=== PATIENT | male | born 1950 | race Caucasian/White ===

== ENCOUNTER 2016-08-07 10:11 | Emergency (ER) | payer MEDICARE, BC ==
[2016-08-07 12:17] LABS: Hematocrit 46 % (42-52); Hemoglobin 15.9 g/dl (14.0-18.0); Mean Corpuscular HGB Conc 35 g/dl (31-36); Mean Corpuscular Hemoglobin 32 pg (27-31); Mean Corpuscular Volume 92 fL (80-94); Mean Platelet Volume 9 um3 (7.4-10.4); Red Blood Count 5.05 10^6/ul (4.0-5.4); Red Cell Distribution Width 13 % (10.5-15); White Blood Count 8.1 10^3/ul (3.5-10.8)
[2016-08-07 12:28] LABS: Albumin 4.1 g/dL (3.2-5.2); BUN/Creatinine Ratio 16.3 (8-20); C Reactive Protein 45.47 mg/L (< 5.00); Calcium 9.6 mg/dL (8.6-10.3); EGFR African American 114.8 (>60); EGFR Non-African American 89.2 (>60); Globulin 3.5 g/dL (2-4); Potassium 4.6 mmol/L (3.5-5.0); Total Bilirubin 0.7 mg/dL (0.2-1.0); Total Protein 7.6 g/dL (6.4-8.9)
[2016-08-07 13:00] LABS: Erythrocyte Sed Rate 54 mm/Hr (0-40)
[2016-08-07] MEDS ORDERED: Iohexol 300* (CONTRAST) 10 ML SDV IV ONE (16:24)
[2016-08-07 16:41] LABS: Urine Bilirubin Negative (Negative); Urine Glucose Negative (Negative); Urine Nitrite Negative (Negative)
--- NOTE | 2016-08-07 17:38 | RAD ---
CLINICAL HISTORY: Rectal pain COMPARISON: Most recent comparison CT is dated August 02, 2016 TECHNIQUE: Contrast enhanced CT examination of the abdomen and pelvis from the lung bases through the initial tuberosities. The patient received 115 mL Omnipaque 300 intravenously prior to imaging.The patient received oral contrast as well prior to imaging. FINDINGS: VISUALIZED LUNG BASES: The visualized lung bases are grossly clear. There is no pleural effusion. ABDOMEN AND PELVIS: In the right lobe of the liver there is a 12 mm low-density exhibiting peripheral nodular enhancement most consistent with a benign hemangioma. The liver parenchyma is otherwise homogenous in attenuation and the surface is smooth. The spleen, pancreas and adrenal glands are grossly normal in appearance. The gallbladder is normal. The left kidney is normal in appearance without focal mass, calcification or signs of hydronephrosis. At the medial aspect of the left mid level kidney there is a 1.7 cm nodule with Hounsfield units greater than that of a simple cyst. This cyst was not definitely identified on the MR of the abdomen dated February 17, 2015. There are contrast has progressed as far as the base of the cecum. The small and large bowel are not pathologically distended. Involving the terminal ileum (for example axial image 57) there is mild wall thickening measuring up to 6 mm in thickness. There is questionable wall thickening involving the base of the cecum (for example coronal image 31). There is a large amount of stool and gas throughout the length of the colon including the rectum measuring 7.1 x 7.7 cm in the axial plane. There is no gross retroperitoneal or mesenteric lymphadenopathy. The pelvic viscera is normal in appearance. The abdominal aorta and iliac arteries are normal in course and diameter. Degenerative changes include multilevel loss of intervertebral disc height involving the lower thoracic and lumbar spine.There are no sinister bone lesions. IMPRESSION: 1. Questionable wall thickening involving the terminal ileum and base of the cecum. Differential for this includes infectious or inflammatory etiologies, however neoplastic etiology is not excluded completely. Particularly if the patient has not recently had screening colonoscopy, direct colonoscopic visualization of the cecum can be made after the patient's acute symptoms have resolved. 2. There is a large amount of stool throughout the entire length of the colon with a minimally dilated stool-filled rectal vault measuring 7.1 x 7.7 cm in the axial plane. Please correlate to signs and symptoms of constipation. 3. There is a hyperdense cyst at the anterior aspect of the mid-level left kidney measuring 1.6 cm that was not definitely seen on the MRA of the abdomen dated February 17, 2015. On a nonemergent basis the kidneys can be further characterized with ultrasound.
[2016-08-07 18:29] VITALS: BP 127/76
--- NOTE | 2016-08-07 21:51 | ED ---
Renuka Owens Claudia, scribed for Ahmet Rowell MD on 08/07/16 at 1318 . Abdominal Pain/Male - HPI Summary HPI Summary: 66 year old male presents to the ED with groin/suprapubic cramping. Pt notes he had an appendectomy on Aug 02 by . Pt notes that it feels like he needs to pass gas or have a BM with intermittent sharp pain. Pt notes that the pain lasts a few seconds. He also admits that he has been able to pass gas and have small BM. Pt notes sudden onset of Sx Monday am. He notes that it feels like there is an obstruction. Pt was at [facility] [place] yesterday and CT and rectal exam was nml. Pt also notes that he has been tolerating PO intake.He is also taking antibiotics for post-surgery. Pt notes about 10 years ago he had a bad reaction to antibiotics brining on abd pain and had an enema which alleviated the Sx. - History of Current Complaint Chief Complaint: EDAbdPain Stated Complaint: LOWER ABD PAIN / SX 5DAYS AGO Time Seen by Provider: 08/07/16 12:03 Hx Obtained From: Patient Onset/Duration: Sudden Onset, Still Present Pain Intensity: 10 Pain Scale Used: 0-10 Numeric Location: Suprapubic, Groin Radiates: No Character: Cramping Aggravating Factor(s): Movement - Allergies/Home Medications Allergies/Adverse Reactions: Allergies Allergy/AdvReac Type Severity Reaction Status Date / Time NKDA Allergy See Comment Uncoded 08/06/16 09:16 PMH/Surg Hx/FS Hx/Imm Hx Previously Healthy: Yes Endocrine/Hematology History: Denies: Hx Anticoagulant Therapy, Hx Diabetes, Hx Thyroid Disease Cardiovascular History: Denies: Hx Congestive Heart Failure, Hx Deep Vein Thrombosis, Hx Hypercholesterolemia, Hx Hypertension, Hx Myocardial Infarction, Hx Pacemaker/ ICD, Hx Peripheral Vascular Disease Respiratory History: Reports: Hx Sleep Apnea - current CPAP user Denies: Hx Asthma, Hx Chronic Obstructive Pulmonary Disease (COPD), Hx Lung Cancer, Hx Pneumonia, Hx Pulmonary Embolism GI History: Reports: Hx Gastroesophageal Reflux Disease Denies: Hx Gall Bladder Disease, Hx Gastrointestinal Bleed, Hx Ulcer, Hx Urosepsis History: Denies: Hx Dialysis, Hx Kidney Stones, Hx Renal Disease Musculoskeletal History: Denies: Hx Arthritis, Hx Rheumatoid Arthritis, Hx Osteoporosis Sensory History: Denies: Hx Cataracts, Hx Contacts or Glasses, Hx Glaucoma, Hx Hearing Aid Opthamlomology History: Denies: Hx Cataracts, Hx Contacts or Glasses, Hx Glaucoma Neurological History: Reports: Hx Headaches, Hx Migraine Denies: Hx Dementia, Hx Seizures, Hx Transient Ischemic Attacks (TIA) Psychiatric History: Reports: Hx Anxiety Denies: Hx Depression, Hx Panic Disorder, Hx Schizophrenia, Hx Bipolar Disorder - Surgical History Surgery Procedure, Year, and Place: TONSILS A CHILD,. 2005 VARICOCELE,. 2010 HEART CATH NO STENTING Infectious Disease History: No Infectious Disease History: Denies: Traveled Outside the [place] in Last 30 Days - Family History Known Family History: Positive: Cardiac Disease - Mother at age 54 from a massive heart attack., Hypertension - Social History Occupation: Retired Alcohol Use: None Hx Substance Use: No Substance Use Type: Reports: None Hx Tobacco Use: No Smoking Status (MU): Never Smoked Tobacco Type: Cigarettes Have You Smoked in the Last Year: No Review of Systems Constitutional: Negative Negative: Fever, Chills Eyes: Negative ENT: Negative Cardiovascular: Negative Respiratory: Negative Positive: Abdominal Pain. Negative: Vomiting Genitourinary: Negative Musculoskeletal: Negative Skin: Negative Neurological: Negative Psychological: Normal All Other Systems Reviewed And Are Negative: Yes Physical Exam - Summary Physical Exam Summary: Rectal Exam: No lesions, bleeding, or hemroids. No prostate tenderness. Exam: No testicular swelling or tenderness. No inguinal bulges or masses. Triage Information Reviewed: Yes Vital Signs On Initial Exam: Initial Vitals Temp Pulse Resp BP Pulse Ox 97.5 F 81 17 128/71 98 08/07/16 10:18 08/07/16 10:18 08/07/16 10:18 08/07/16 10:18 08/07/16 10:18 Vital Signs Reviewed: Yes Appearance: Positive: Well-Appearing - comfortable plesant alert ENT: Positive: Other - moist mucosa Neck: Positive: Supple, Nontender Respiratory/Lung Sounds: Positive: Clear to Auscultation, Breath Sounds Present. Negative: Rales, Rhonchi, Wheezes Cardiovascular: Positive: RRR, S1, S2. Negative: Murmur, Rub, Leg Edema Left, Leg Edema Right Abdomen Description: Positive: Soft, Distended - softly distended, Other: - surgical wound is not red or hot. Negative: Guarding Musculoskeletal: Positive: Edema Left. Negative: Edema Right Neurological: Positive: Alert, Oriented to Person Place, Time Psychiatric: Positive: Other - logical coherent - Steven Coma Scale Coma Scale Total: 15 Diagnostics - Vital Signs Vital Signs Temp Pulse Resp BP Pulse Ox 08/07/16 13:05 98.7 F 70 15 126/76 97 08/07/16 11:49 77 16 140/80 99 08/07/16 10:18 97.5 F 81 17 128/71 98 - Laboratory Lab Results: Lab Results 08/07/16 08/07/16 08/07/16 Range/Units 11:30 11:30 11:30 WBC 8.1 (3.5-10.8) 10^3/ul RBC 5.05 (4.0-5.4) 10^6/ul Hgb 15.9 (14.0-18.0) g/dl Hct 46 (42-52) % MCV 92 (80-94) fL MCH 32 H (27-31) pg MCHC 35 (31-36) g/dl RDW 13 (10.5-15) % Plt Count 266 (150-450) 10^3/ul MPV 9 (7.4-10.4) um3 Neut % (Auto) 80.9 (38-83) % Lymph % (Auto) 8.2 L (25-47) % [place] % (Auto) 9.3 H (1-9) % Eos % (Auto) 1.0 (0-6) % Baso % (Auto) 0.6 (0-2) % Absolute Neuts (auto) 6.6 (1.5-7.7) 10^3/ul Absolute Lymphs (auto) 0.7 L (1.0-4.8) 10^3/ul Absolute Monos (auto) 0.8 (0-0.8) 10^3/ul Absolute Eos (auto) 0.1 (0-0.6) 10^3/ul Absolute Basos (auto) 0 (0-0.2) 10^3/ul Absolute Nucleated RBC 0.01 10^3/ul Nucleated RBC % 0.1 ESR 54 H (0-40) mm/Hr Sodium 131 L (133-145) mmol/L Potassium 4.6 (3.5-5.0) mmol/L Chloride 98 L (101-111) mmol/L Carbon Dioxide 28 (22-32) mmol/L Anion Gap 5 (2-11) mmol/L BUN 14 (6-24) mg/dL Creatinine 0.86 (0.67-1.17) mg/dL Est GFR ( Amer) 114.8 (>60) Est GFR (Non-Af Amer) 89.2 (>60) BUN/Creatinine Ratio 16.3 (8-20) Glucose 88 (70-100) mg/dL Lactic Acid 0.9 (0.5-2.0) mmol/L Calcium 9.6 (8.6-10.3) mg/dL Total Bilirubin 0.70 (0.2-1.0) mg/dL AST 20 (13-39) U/L ALT 22 (7-52) U/L Alkaline Phosphatase 81 (34-104) U/L C-Reactive Protein 45.47 H (< 5.00) mg/L Total Protein 7.6 (6.4-8.9) g/dL Albumin 4.1 (3.2-5.2) g/dL Globulin 3.5 (2-4) g/dL Albumin/Globulin Ratio 1.2 (1-3) Lipase 17 (11.0-82.0) U/L Result Diagrams: 08/07/16 11:30 08/07/16 11:30 Lab Statement: Any lab studies that have been ordered have been reviewed, and results considered in the medical decision making process. - CT CT ABD/PELVIS CT Interpretation: No Acute Changes - QUESTIONABLE THICKENING INVOLVING THE TERMINAL ILEUM AND BASE OF THE CECUM. DIFFERENTIAL FOR THIS INCLUDES INFECTIOUS OR INFLAMMATORY ETIOLOGIES, HOWEVER NEOPLASTIC ETIOLOGY IS NO EXCLUDED COMPLETELY. PARTICULARLY IF THE PATIENT HAS NOT RECENTLY HAS SCREENING COLONS COPY, DIRECT COLONS COPIC VISUALIZATION OF THE CECUM CAN BE MADE AFTER THE PATIENT'S ACUTE SYMPTOMS HAVE RESOLVED. THERE IS A LARGE AMOUNT OF STOOL THROUGHOUT THE ENTIRE LENGTH OF THE COLON WITH A MINIMALLY DIALATED STOOL- FILLED RECTAL VAULT MEASURING 7.1CM X 7.7CM IN THE AXIAL PLANE. PLESE CORRELATE TO SIGNS AND SYMPTOMS OF CONSTIPATION. THERE IS A HYPERDENSE CYST AT THE ANTERIOR ASPECT OF THE MID-LEVEL LEFT KIDNEY MEASURING 1.6CM THAT WAS NOT DEFINITELY SEEN ON THE MRA OF THE ABDOMEN DATED February. ON A NONEMERGENT BASIS THE KIDNEYS CAN BE FURHTER CHARACTERIZED WITH ULTRASOUND. CT Interpretation Completed By: Radiologist Re-Evaluation - Re-Evaluation 1 Re-Evaluation Time: 14:20 Comment: The patient is concerned because his previous CT was non-contast and he thinks something else might be found with a contrast CT. Pt notes that he does not think the pain is related to his hip or any musculoskeltal reason. We have the patinet squat and bend over and we cannot re-create the pain. I tell him that in no uncertain terms that I reccomend that he observes his Sx for a day or two and follow-up with PCP. We describe how he had a nml CT yesterdy he states that he is aware that a CT does expose him to radiation but would like to proceed anyways becasue he is very concerned that there is still something undedected in that area. This conversation was long and detailed and I tried to set his mind at ease and he was still concerned. We will repeat the CT with PO and IV contrast for his inner rectal pain that he has isolated as episodes with bowel movements. Abdominal Pain Fem Course/Dx - Course Assessment/Plan: Presents with episodic rectal pain very concerned about complications or something more worrisome that we may have missed on CT yesterday. With his permission and insisting we do get repeated CT with PO and IV contrast. There are non-specific findings that are not causing his pain, such as the fecal thickening and constipation which is clinically consistent with history. I recommend mineral oil, prune juice and continued miralax. He is interested in trying to improve his Sx with enema. Otherwise there is a follow-up already set up for Monday. Safe for d/c - Diagnoses Differential Diagnosis/HQI/PQRI: Appendicitis, Bowel Obstruction, Constipation, Diverticulitis, Epididymitis, Gall Bladder Disease, Ischemic Bowel, Testicular Torsion, Ureteral Stone, Urinary Tract Infection Provider Diagnoses: Constipation, Rectal pain Discharge - Discharge Plan Condition: Good Disposition: HOME Patient Education Materials: Rectal Pain (ED) Referrals: Robby Kennedy MD [Medical Doctor] - 3 Days Jhon Chavez DO [Primary Care Provider] - The documentation as recorded by the Renuka patton Claudia accurately reflects the service I personally performed and the decisions made by me, Ahmet Rowell MD.
== END 2016-08-07 18:35 | disposition home or self-care (01) ==
LOC: ED 10:11
DX: K59.00 Constipation, unspecified (principal); K62.89 Other specified diseases of anus and rectum; K21.9 Gastro-esophageal reflux disease without esophagitis
CPT/HCPCS: 36415; 74177; 80053; 81003; 83605; 83690; 85025; 85652; 86140; 99282; Q9967

== ENCOUNTER 2017-09-05 18:08 | Emergency (ER) | payer MEDICARE, BC ==
--- OUTSIDE RECORDS SUMMARY | 2017-09-05 18:17 | XMS REPORT ---
:1950 External Reference #:[id number] Author Organization [facility] Address [address] [place] [address] Phone [phone] Care Team Providers Name Role Phone HCP given Primary Care Physician Unavailable Payers Type Date Identification Numbers Payment Provider Subscriber Medicare Primary Effective: Policy Number: National [facility] Courtney Sanderson 2016 [id number] Services PayID: [id number] [address] [place] [address] Medigap Part B Policy Number: [id number] [place] Courtney Sanderson Group Number: [id number] [address] Group Name: [facility] [place] [address] PayID: [id number] Problems Date Description Provider Status Onset: 11/06/2003 Benign prostatic hypertrophy Brady Moser M.D. Active without outflow obstruction Onset: 08/15/2013 Obstructive sleep apnea syndrome Jhon Chavez D.O. Active Onset: 08/15/2013 Headache Jhon Chavez D.O. Active Onset: 08/15/2013 Gastroesophageal reflux disease Jhon Chavez D.O. Active Onset: 08/25/2015 Pain in thoracic spine Jhon Chavez D.O. Active Onset: 09/25/2015 Low back pain Jhon Chavez D.O. Active Onset: 09/25/2015 Myalgia Jhon Chavez D.O. Active Onset: 08/17/2017 Brachial neuritis Jhon Chavez D.O. Active Family History Date Family Member(s) Problem(s) Comments Father Iwona born 1923 ghg : (age 54 Mother due to VT Years) Mother Anxiety Mother Jodie born 192 First Brother Shruthi born 194 First Sister due to Ovarian () - AGE 50 Cancer First Sister Nelsy born 1952. 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 21 Years Old Additional Info Sexual preference is women Allergies, Adverse Reactions, Alerts Date Description Reaction Status Severity Comments 11/06/2003 NKDA active Medications Medication Date Status Form Strength Qnty SIG Indications Ordering Provider Miralax 08/02 Active OTC as directed, 2 full doses twice daily Aspirin 08/14 Active 81mg one po Unknown Children's daily Multi-Vitamin 08/14 Active OTC one po daily Heated Cpap 06/13 Active use nightly klepack With Humidifier C Pap Machine 04/27 Active use as klepack /2005 directed #1 Flax Seed Oil Active Capsules 1000mg once a day Unknown Butalbital-Acet 08/08 Hx Tablets 50-325mg 14tab take 1 Kathy aminophen s tablet by Jhon, - mouth every D.O. 08/16 4 hours 3 as needed rarely for headache Nasonex 07/05 Hx Suspension 50mcg/Act 17gm 2 sprays H69.90 Silco each Daron - nostril M.D. 07/26 daily as needed Tamiflu 11/18 Hx Capsules 75mg 10cap take 1 J11.1 Kathy s capsule by Jhon, - mouth 2 D.O. 11/23 times per day for 5 days for flu Lidocaine HCL 07/17 Hx Gel 2% 30ml apply to K64.1 Sole Chavez affected Jose Ferreira four D.O. 04/14 times a day as needed Hydrocortisone 07/17 Hx Suppository 30mg 120un insert 1 K64.1 [place], its suppository Jhon, - rectally D.O. 04/14 morning and night for 6 to 8 weeks Fluticasone 03/31 Hx Suspension 50mcg/Act 1unit 2 sprays 461.0 [place], s into each Jhon, - nostril D.O. 05/01 every for nasal congestion. nagi allergies. rinse mouth post 472.0 Proctosol HC 10/28/2013 - Hx Cream 2.5% 28.350gm 1 cap apply 455.4 [place], 11/28/2013 to affected Jhon, area four D.O. times a day Lidocaine HCL 10/28/2013 - Hx Gel 2% 30ml apply to 455.4 [place], Jelly 11/28/2014 affected area Jhon, four times a D.O. day as needed Omeprazole 08/15/2013 - Hx Capsules 40mg 30caps 1 po qd 530.81 [place], 09/26/2013 DR Ferreira, D.O. Sumatriptan 08/15/2013 - Hx Tablets 25mg 8tabs Take 1 tablet 784.0 [place], Succinate 10/28/2013 by mouth one Jhon, time december D.O. repeat after 2 hours if headache persists up to 8 tablets per day as needed for migraine Psyllium 08/14/2013 - Hx Powder OTC two tsp daily Unknown 09/05/2016 in water Indomethacin 08/11/2010 - Hx Capsules 25mg 28caps 1 by mouth 784.0 Silcoff, 08/15/2013 twice a day; Daron, start this M.D. only if your headache returns; Make another appointment if not better after 2-3 days Aristocort 06/23/2009 - Hx Cream 0.1% 30gm use prn itch 053.9 Brady Avendano 08/15/2013 and tid Dee Moser Valtrex 06/23/2009 - Hx Tablets 500mg 14tabs 1 tablet po 053.9 Brady Avendano 07/03/2009 bid as brittany Moser M.D. Physical 08/29/2007 - Hx for back aysha Therpay 02/01/2009 pain. Cortifoam 05/03/2007 - Hx Foam 90mg Apply To 455.6 [facility] 02/01/2009 Affected Area bid #QS For 2 Weeks Aciphex 08/11/2004 - Hx Tablets 40mg 30tabs 1 po qd 789.06 [facility] 08/18/2004 Flexeril 04/23/2004 - Hx Tablets 10mg 30tabs 1 PO Q hs 724.2 [facility] 09/11/2004 DO Not Operate Heavy Equipment While On Meds Immunizations CPT Code Status Date Vaccine Lot # [id number] Given 05/10/2017 Influenza Vaccine Split Virus Preservative Free Im [id number] Use 12379 Given 04/15/2016 Prevnar 13 [id number] 92863 Given 04/15/2016 Influenza Vaccine Split Virus Preservative Free Im [id number] Use 88259 Given 08/25/2015 Zostavax [id number] 70086 Given 05/15/2015 Influenza Virus Vaccine, Quadrivalent, Split, [id number] Preservative Free 26203 Given 06/14/2014 Flu, Split Virus 3Yrs [id number] 24179 Given 08/15/2013 Adacel or Boostrix, TDaP [id number] 68928 Given 05/22/2013 Flu, Split Virus 3Yrs [id number] 13155 Given 06/18/2007 Flu, Split Virus 3Yrs 38870 Given 06/23/2006 Flu, Split Virus 3Yrs [id number] 79216 Given 06/08/2005 Flu, Split Virus 3Yrs 02128 Given 05/27/2003 Flu, Split Virus 3Yrs 69386 Given 11/05/2002 Td Immunization 55005 Given 08/07/1989 Td Immunization Vital Signs Date Vital Result Comment 08/24/2017 BP Systolic 120 mmHg BP Diastolic 78 mmHg Weight 190.00 lb with boots 08/17/2017 BP Systolic 124 mmHg BP Diastolic 64 mmHg Weight 191.00 lb 08/08/2017 BP Systolic 126 mmHg BP Diastolic 70 mmHg Body Temperature 98.6 F 07/27/2017 BP Systolic 120 mmHg BP Diastolic 78 mmHg Height 73.75 inches 6'1.75" with shoes Weight 191.00 lb with shoes BMI (Body Mass Index) 24.7 kg/m2 07/05/2017 BP Systolic 120 mmHg BP Diastolic 66 mmHg Body Temperature 98.9 F 11/18/2016 BP Systolic 130 mmHg BP Diastolic 80 mmHg Body Temperature 98.2 F Weight 188.00 lb 10/13/2016 BP Systolic 120 mmHg BP Diastolic 72 mmHg Height 74 inches 6'2" with shoes Weight 184.00 lb with shoes BMI (Body Mass Index) 23.6 kg/m2 09/06/2016 BP Systolic 124 mmHg BP Diastolic 80 mmHg 08/18/2016 BP Systolic 132 mmHg BP Diastolic 88 mmHg Weight 186.00 lb with sneakers 08/15/2016 BP Systolic 134 mmHg BP Diastolic 86 mmHg Body Temperature 98.6 F 08/12/2016 BP Systolic 114 mmHg BP Diastolic 70 mmHg Heart Rate 80 /min Body Temperature 98.4 F Weight 189.00 lb w/shoes 06/23/2016 BP Systolic 120 mmHg BP Diastolic 76 mmHg Weight 196.00 lb w/shoes 06/10/2016 BP Systolic 120 mmHg BP Diastolic 70 mmHg Body Temperature 98.5 F Weight 195.00 lb w/shoes 05/30/2016 BP Systolic 136 mmHg BP Diastolic 80 mmHg Weight 192.00 lb w/shoes 04/15/2016 BP Systolic 122 mmHg BP Diastolic 70 mmHg Heart Rate 76 /min Height 74.5 inches 6'2.50" with sneakers Weight 192.00 lb with sneakers BMI (Body Mass Index) 24.3 kg/m2 09/25/2015 BP Systolic 128 mmHg BP Diastolic 74 mmHg Heart Rate 64 /min Weight 189.00 lb 08/25/2015 BP Systolic 126 mmHg BP Diastolic 74 mmHg Height 75 inches 6'3" Weight 188.00 lb BMI (Body Mass Index) 23.5 kg/m2 07/17/2015 BP Systolic 130 mmHg BP Diastolic 73 mmHg Heart Rate 65 /min 07/10/2015 BP Systolic 105 mmHg BP Diastolic 62 mmHg Weight 190.00 lb with shoes 03/27/2015 BP Systolic 120 mmHg BP Diastolic 80 mmHg Weight 191.00 lb w/shoes 02/10/2015 BP Systolic 120 mmHg BP Diastolic 78 mmHg 01/30/2015 BP Systolic 124 mmHg BP Diastolic 78 mmHg Body Temperature 98.7 F Height 73.75 inches 6'1.75" Weight 188.00 lb BMI (Body Mass Index) 24.3 kg/m2 07/09/2014 BP Systolic 131 mmHg BP Diastolic 77 mmHg Heart Rate 75 /min Body Temperature 99.2 F 06/27/2014 BP Systolic 130 mmHg BP Diastolic 78 mmHg Heart Rate 72 /min Body Temperature 98.7 F Weight 187.00 lb 06/27/2014 BP Systolic 130 mmHg BP Diastolic 78 mmHg Heart Rate 72 /min Body Temperature 98.7 F Weight 187.00 lb 03/31/2014 BP Systolic 140 mmHg BP Diastolic 80 mmHg Body Temperature 99.0 F Weight 184.00 lb 12/19/2013 BP Systolic 110 mmHg BP Diastolic 76 mmHg Body Temperature 98.9 F Weight 186.00 lb 10/28/2013 BP Systolic 128 mmHg BP Diastolic 78 mmHg Weight 186.00 lb 09/26/2013 BP Systolic 120 mmHg BP Diastolic 70 mmHg Weight 183.00 lb 08/15/2013 BP Systolic 132 mmHg BP Diastolic 76 mmHg Height 75 inches 6'3" shoes on Weight 186.00 lb shoes on BMI (Body Mass Index) 23.2 kg/m2 07/26/2013 BP Systolic 126 mmHg BP Diastolic 80 mmHg Weight 180.00 lb 08/11/2010 BP Systolic 110 mmHg BP Diastolic 80 mmHg Body Temperature 99.2 F Height 75 inches 6'3" Weight 184.00 lb BMI (Body Mass Index) 23.0 kg/m2 Last Menstrual Period 0 06/23/2009 BP Systolic 120 mmHg BP Diastolic 90 mmHg Body Temperature 99.1 F Weight 180.00 lb Last Menstrual Period 0 03/28/2009 BP Systolic 118 mmHg BP Diastolic 80 mmHg Body Temperature 99.3 F Weight 176.00 lb 02/02/2009 BP Systolic 116 mmHg BP Diastolic 78 mmHg Heart Rate 60 /min reg Respiratory Rate 12 /min not laboured Body Temperature 98.8 F Weight 177.00 lb Last Menstrual Period 0 08/16/2007 BP Systolic 116 mmHg BP Diastolic 80 mmHg Height 75 inches 6'3" Today With Shoes Weight 185.00 lb BMI (Body Mass Index) 23.1 kg/m2 07/11/2007 BP Systolic 120 mmHg BP Diastolic 90 mmHg Height 75 inches 6'3" Today With Shoes Weight 187.00 lb BMI (Body Mass Index) 23.4 kg/m2 07/05/2007 BP Systolic 110 mmHg BP Diastolic 74 mmHg Height 75 inches 6'3" Today With Shoes Weight 187.50 lb BMI (Body Mass Index) 23.4 kg/m2 05/18/2007 BP Systolic 140 mmHg BP Diastolic 78 mmHg Height 75 inches 6'3" Today With Shoes Weight 185.00 lb BMI (Body Mass Index) 23.1 kg/m2 05/03/2007 BP Systolic 126 mmHg BP Diastolic 82 mmHg Height 75 inches 6'3" Today With Shoes Weight 185.00 lb BMI (Body Mass Index) 23.1 kg/m2 Last Menstrual Period 0 03/01/2007 BP Systolic 124 mmHg BP Diastolic 78 mmHg Height 75 inches 6'3" Today With Shoes Weight 181.00 lb BMI (Body Mass Index) 22.6 kg/m2 01/17/2007 BP Systolic 134 mmHg BP Diastolic 70 mmHg Height 75 inches 6'3" Today With Shoes Weight 184.50 lb BMI (Body Mass Index) 23.1 kg/m2 12/18/2006 BP Systolic 122 mmHg BP Diastolic 74 mmHg Height 75 inches 6'3" Today With Shoes Weight 187.00 lb BMI (Body Mass Index) 23.4 kg/m2 09/06/2006 BP Systolic 126 mmHg BP Diastolic 78 mmHg Height 75 inches 6'3" Today With Shoes Weight 187.00 lb BMI (Body Mass Index) 23.4 kg/m2 Last Menstrual Period 0 06/23/2006 BP Systolic 124 mmHg BP Diastolic 74 mmHg Height 75 inches 6'3" Today With Shoes Weight 187.00 lb BMI (Body Mass Index) 23.4 kg/m2 05/17/2006 BP Systolic 122 mmHg BP Diastolic 76 mmHg 05/10/2006 BP Systolic 116 mmHg BP Diastolic 70 mmHg Height 75 inches 6'3" Today With Shoes 02/09/06 Weight 185.00 lb BMI (Body Mass Index) 23.1 kg/m2 04/07/2006 BP Systolic 126 mmHg BP Diastolic 78 mmHg Height 75 inches 6'3" Today With Shoes 02/09/06 03/02/2006 BP Systolic 130 mmHg BP Diastolic 84 mmHg Height 75 inches 6'3" Today With Shoes 02/09/06 Weight 188.00 lb BMI (Body Mass Index) 23.5 kg/m2 02/08/2006 BP Systolic 120 mmHg BP Diastolic 80 mmHg Height 75 inches 6'3" Today With Shoes 02/09/06 Weight 188.00 lb BMI (Body Mass Index) 23.5 kg/m2 02/01/2006 BP Systolic 120 mmHg BP Diastolic 82 mmHg Height 74 inches 6'2" Weight 188.00 lb BMI (Body Mass Index) 24.1 kg/m2 12/07/2005 BP Systolic 130 mmHg BP Diastolic 80 mmHg Height 74 inches 6'2" Weight 188.00 lb BMI (Body Mass Index) 24.1 kg/m2 08/22/2005 BP Systolic 116 mmHg BP Diastolic 78 mmHg Height 74 inches 6'2" Weight 190.00 lb BMI (Body Mass Index) 24.4 kg/m2 06/15/2005 BP Systolic 120 mmHg lg cuff BP Diastolic 78 mmHg lg cuff Height 74 inches 6'2" 06/08/2005 BP Systolic 120 mmHg BP Diastolic 85 mmHg Height 74 inches 6'2" Weight 192.00 lb BMI (Body Mass Index) 24.6 kg/m2 03/02/2005 BP Systolic 110 mmHg BP Diastolic 75 mmHg Height 74 inches 6'2" Weight 188.00 lb BMI (Body Mass Index) 24.1 kg/m2 01/06/2005 BP Systolic 120 mmHg BP Diastolic 84 mmHg Height 74 inches 6'2" 11/24/2004 BP Systolic 120 mmHg BP Diastolic 70 mmHg Body Temperature 98.7 F Height 74 inches 6'2" Weight 188.00 lb BMI (Body Mass Index) 24.1 kg/m2 09/11/2004 BP Systolic 100 mmHg BP Diastolic 70 mmHg Heart Rate 68 /min reg Respiratory Rate 12 /min not laboured Body Temperature 101.5 F PO Had Apap Height 74 inches 6'2" Weight 196.00 lb BMI (Body Mass Index) 25.2 kg/m2 08/18/2004 BP Systolic 138 mmHg BP Diastolic 84 mmHg Height 74 inches 6'2" Weight 190.00 lb BMI (Body Mass Index) 24.4 kg/m2 08/11/2004 BP Systolic 130 mmHg BP Diastolic 86 mmHg Body Temperature 99.1 F Height 74 inches 6'2" Weight 192.00 lb BMI (Body Mass Index) 24.6 kg/m2 05/14/2004 BP Systolic 122 mmHg BP Diastolic 70 mmHg Height 74 inches 6'2" 04/23/2004 BP Systolic 120 mmHg BP Diastolic 80 mmHg Height 74 inches 6'2" Weight 189.00 lb BMI (Body Mass Index) 24.3 kg/m2 01/01/2004 BP Systolic 120 mmHg R Arm Sitting BP Diastolic 80 mmHg R Arm Sitting Height 74 inches 6'2" Weight 187.00 lb BMI (Body Mass Index) 24.0 kg/m2 11/06/2003 BP Systolic 146 mmHg Please Recheck BP BP Diastolic 86 mmHg Please Recheck BP Height 74 inches 6'2" Weight 187.00 lb BMI (Body Mass Index) 24.0 kg/m2 Results Test Date Test Result H/L Range Note Rapid Influenza A & 11/18/2016 Influenza A Molecular NEGATIVE Negative 1 B Molecular Influenza B Molecular NEGATIVE Negative Laboratory test 11/18/2016 Rapid Influenza A B SEE RESULT BELOW 2, 3 finding Antigen CBC No Diff 08/19/2016 White Blood Count 5.4 10^3/uL 3.5-10.8 Red Blood Count 4.83 10^6/uL 4.0-5.4 Hemoglobin 14.9 g/dL 14.0-18.0 Hematocrit 44 % 42-52 Mean Corpuscular Volume 91 fL 80-94 Mean Corpuscular Hemoglobin 31 pg 27-31 Mean Corpuscular HGB Conc 34 g/dL 31-36 Red Cell Distribution Width 13 % 10.5-15 Platelet Count 330 10^3/uL 150-450 Mean Platelet Volume 8 um3 7.4-10.4 Basic Metabolic Panel 08/19/2016 Sodium 131 mmol/L Low 133-145 Chloride 98 mmol/L Low 101-111 Co2 Carbon Dioxide 27 mmol/L 22-32 Glucose 100 mg/dL 70-100 Blood Urea Nitrogen 12 mg/dL 6-24 Creatinine 0.85 mg/dL 0.67-1.17 BUN/Creatinine Ratio 14.1 8-20 Calcium 9.4 mg/dL 8.6-10.3 Egfr Non- 90.5 >60 Egfr 116.3 >60 4 Potassium 5.0 mmol/L 3.5-5.0 5 Anion Gap 6 mmol/L 2-11 Comp Metabolic Panel 08/07/2016 Sodium 131 mmol/L Low 133-145 Potassium 4.6 mmol/L 3.5-5.0 Chloride 98 mmol/L Low 101-111 Co2 Carbon Dioxide 28 mmol/L 22-32 Anion Gap 5 mmol/L 2-11 Glucose 88 mg/dL 70-100 Blood Urea Nitrogen 14 mg/dL 6-24 Creatinine 0.86 mg/dL 0.67-1.17 BUN/Creatinine Ratio 16.3 8-20 Calcium 9.6 mg/dL 8.6-10.3 Total Protein 7.6 g/dL 6.4-8.9 Albumin 4.1 g/dL 3.2-5.2 Globulin 3.5 g/dL 2-4 Albumin/Globulin Ratio 1.2 1-3 Total Bilirubin 0.70 mg/dL 0.2-1.0 Alkaline Phosphatase 81 U/L 34-104 Alt 22 U/L 7-52 Ast 20 U/L 13-39 Egfr Non- 89.2 >60 Egfr 114.8 >60 6 Laboratory test finding 08/07/2016 Lipase 17 U/L 11.0-82.0 C Reactive Protein 45.47 mg/L High < 5.00 7 Lactic Acid 0.9 mmol/L 0.5-2.0 8 CBC Auto Diff 08/07/2016 White Blood Count 8.1 10^3/uL 3.5-10.8 Red Blood Count 5.05 10^6/uL 4.0-5.4 Hemoglobin 15.9 g/dL 14.0-18.0 Hematocrit 46 % 42-52 Mean Corpuscular Volume 92 fL 80-94 Mean Corpuscular Hemoglobin 32 pg High 27-31 Mean Corpuscular HGB Conc 35 g/dL 31-36 Red Cell Distribution Width 13 % 10.5-15 Platelet Count 266 10^3/uL 150-450 Mean Platelet Volume 9 um3 7.4-10.4 Abs Neutrophils 6.6 10^3/uL 1.5-7.7 Abs Lymphocytes 0.7 10^3/uL Low 1.0-4.8 Abs Monocytes 0.8 10^3/uL 0-0.8 Abs Eosinophils 0.1 10^3/uL 0-0.6 Abs Basophils 0 10^3/uL 0-0.2 Abs Nucleated RBC 0.01 10^3/uL Granulocyte % 80.9 % 38-83 Lymphocyte % 8.2 % Low 25-47 Monocyte % 9.3 % High 1-9 Eosinophil % 1.0 % 0-6 Basophil % 0.6 % 0-2 Nucleated Red Blood Cells % 0.1 Laboratory test finding 08/07/2016 Erythrocyte Sed Rate 54 mm/Hr High 0- 40 Urinalysis Profile 08/07/2016 Urine Color Yellow Urine Appearance Cloudy Urine Specific [place] 1.016 1.010-1.030 Urine pH 7.0 5-9 Urine Urobilinogen Negative Negative Urine Ketones 1+ Negative Urine Protein Negative Negative Urine Leukocytes Negative Negative Urine Blood Negative Negative * * Negative 9 Urine Nitrite Negative Negative Urine Bilirubin Negative Negative Urine Glucose Negative Negative Urinalysis Profile 08/06/2016 Urine Color Yellow Urine Appearance Clear Urine Specific [place] 1.011 1.010-1.030 Urine pH 8.0 5-9 Urine Urobilinogen Negative Negative Urine Ketones Trace Negative Urine Protein Negative Negative Urine Leukocytes Negative Negative Urine Blood Negative Negative Urine Nitrite Negative Negative Urine Bilirubin Negative Negative Urine Glucose Negative Negative Urinalysis Profile 08/01/2016 Urine Color [place] Urine Appearance Cloudy Urine Specific [place] 1.016 1.010-1.030 Urine pH 7.0 5-9 Urine Urobilinogen Negative Negative Urine Ketones Negative Negative Urine Protein Negative Negative Urine Leukocytes Negative Negative Urine Blood 1+ Negative * * Negative 10 Urine Nitrite Negative Negative Urine Bilirubin Negative Negative Urine Glucose Negative Negative Urine White Blood Cell Absent Absent Urine Red Blood Cell 3+(>10/hpf) Absent Urine Bacteria Absent Absent Laboratory test 08/01/2016 Urine Culture And SEE RESULT BELOW 11 finding Sensitivities Comp Metabolic Panel 06/24/2016 Sodium 135 mmol/L 133-145 Potassium 4.5 mmol/L 3.5-5.0 Chloride 100 mmol/L Low 101-111 Co2 Carbon Dioxide 31 mmol/L 22-32 Anion Gap 4 mmol/L 2-11 Glucose 101 mg/dL High 70-100 Blood Urea Nitrogen 10 mg/dL 6-24 Creatinine 0.91 mg/dL 0.67-1.17 BUN/Creatinine Ratio 11.0 8-20 Calcium 9.3 mg/dL 8.6-10.3 Total Protein 6.4 g/dL 6.4-8.9 Albumin 4.3 g/dL 3.2-5.2 Globulin 2.1 g/dL 2-4 Albumin/Globulin Ratio 2.0 1-3 Total Bilirubin 0.90 mg/dL 0.2-1.0 Alkaline Phosphatase 64 U/L 34-104 Alt 23 U/L 7-52 Ast 25 U/L 13-39 Egfr Non- 83.6 >60 Egfr 107.5 >60 12 Laboratory test finding 06/24/2016 Magnesium 2.4 mg/dL 1.9-2.7 Phosphorus 2.8 mg/dL 2.5-5.0 TSH (Thyroid Stim Horm) 2.21 mcIU/mL 0.34-5.60 Vitamin B12 1005 pg/mL High 180-914 13 Lipid Profile (Trig/Chol/HDL) 06/24/2016 Triglycerides 98 mg/dL 14 Cholesterol 166 mg/dL 15 HDL Cholesterol 35.2 mg/dL 16 LDL Cholesterol 111 mg/dL 17 Xray 04/15/2016 X-Ray, Chest, 2 Views wnl Order 04/15/2016 EKG W/ Reading wnl Lipid Profile (Trig/Chol/HDL) 08/21/2015 Triglycerides 65 mg/dL 18 Cholesterol 159 mg/dL 19 HDL Cholesterol 38.5 mg/dL 20 LDL Cholesterol 108 mg/dL 21 Laboratory test finding 08/21/2015 TSH (Thyroid Stim Horm) 2.11 ?IU/mL 0.34-5.60 22 Comp Metabolic Panel 08/21/2015 Sodium 136 mmol/L 133-145 Potassium 4.2 mmol/L 3.5-5.0 Chloride 100 mmol/L Low 101-111 Co2 Carbon Dioxide 31 mmol/L 22-32 Anion Gap 5 mmol/L 2-11 Glucose 96 mg/dL 70-100 Blood Urea Nitrogen 12 mg/dL 6-24 Creatinine 0.87 mg/dL 0.67-1.17 BUN/Creatinine Ratio 13.8 8-20 Calcium 9.3 mg/dL 8.6-10.3 Total Protein 6.8 g/dL 6.4-8.9 Albumin 4.8 g/dL 3.2-5.2 Globulin 2.0 g/dL 2-4 Albumin/Globulin Ratio 2.4 1-3 Total Bilirubin 0.70 mg/dL 0.2-1.0 Alkaline Phosphatase 73 U/L 34-104 Alt 19 U/L 7-52 Ast 24 U/L 13-39 Egfr Non- 88.3 >60 Egfr 113.6 >60 23 CBC Auto Diff 08/21/2015 White Blood Count 3.7 10^3/uL 3.5-10.8 Red Blood Count 4.96 10^6/uL 4.0-5.4 Hemoglobin 15.8 g/dL 14.0-18.0 Hematocrit 47 % 42-52 Mean Corpuscular Volume 94 fL 80-94 Mean Corpuscular Hemoglobin 32 pg High 27-31 Mean Corpuscular HGB Conc 34 g/dL 31-36 Red Cell Distribution Width 13 % 10.5-15 Platelet Count 190 10^3/uL 150-450 Mean Platelet Volume 9 um3 7.4-10.4 Abs Neutrophils 2.4 10^3/uL 1.5-7.7 Abs Lymphocytes 0.7 10^3/uL Low 1.0-4.8 Abs Monocytes 0.4 10^3/uL 0-0.8 Abs Eosinophils 0.1 10^3/uL 0-0.6 Abs Basophils 0 10^3/uL 0-0.2 Abs Nucleated RBC 0.01 10^3/uL Granulocyte % 64.1 % 38-83 Lymphocyte % 18.8 % Low 25-47 Monocyte % 12.0 % High 1-9 Eosinophil % 3.8 % 0-6 Basophil % 1.3 % 0-2 Nucleated Red Blood Cells % 0.3 Laboratory test finding 06/17/2015 Surgical Pathology SEE RESULT BELOW 24 Liver Function Panel 02/04/2015 Total Protein 6.7 g/dL 6.4-8.9 Albumin 4.5 g/dL 3.2-5.2 Globulin 2.2 g/dL 2-4 Albumin/Globulin Ratio 2.0 1-3 Total Bilirubin 0.80 mg/dL 0.2-1.0 Direct Bilirubin 0.10 mg/dL 0.03-0.18 Indirect Bilirubin 0.7 mg/dL 0.3-1.0 Alkaline Phosphatase 71 U/L 34-104 Alt 30 U/L 7-52 Ast 28 U/L 13-39 CBC Auto Diff 02/04/2015 White Blood Count 3.7 10^3/uL Low 4.8-10.8 Red Blood Count 4.96 10^6/uL 4.0-5.4 Hemoglobin 15.8 g/dL 14.0-18.0 Hematocrit 47 % 42-52 Mean Corpuscular Volume 94 fL 80-94 Mean Corpuscular Hemoglobin 32 pg High 27-31 Mean Corpuscular HGB Conc 34 g/dL 31-36 Red Cell Distribution Width 14 % 10.5-15 Platelet Count 187 10^3/uL 150-450 Mean Platelet Volume 10 um3 7.4-10.4 Abs Neutrophils 2.5 10^3/uL 1.5-7.7 Abs Lymphocytes 0.6 10^3/uL Low 1.0-4.8 Abs Monocytes 0.4 10^3/uL 0-0.8 Abs Eosinophils 0.1 10^3/uL 0-0.6 Abs Basophils 0 10^3/uL 0-0.2 Abs Nucleated RBC 0 10^3/uL Granulocyte % 68.8 % 38-83 Lymphocyte % 16.6 % Low 25-47 Monocyte % 10.8 % High 1-9 Eosinophil % 2.6 % 0-6 Basophil % 1.2 % 0-2 Nucleated Red Blood Cells % 0.1 Basic Metabolic Panel 02/04/2015 Sodium 137 mmol/L 133-145 Potassium 4.5 mmol/L 3.5-5.0 Chloride 100 mmol/L Low 101-111 Co2 Carbon Dioxide 32 mmol/L 22-32 Anion Gap 5 mmol/L 2-11 Glucose 93 mg/dL 70-100 Blood Urea Nitrogen 12 mg/dL 6-24 Creatinine 0.93 mg/dL 0.67-1.17 BUN/Creatinine Ratio 12.9 8-20 Calcium 9.2 mg/dL 8.6-10.3 Egfr Non- 82.1 >60 Egfr 105.5 >60 25 Laboratory test finding 02/04/2015 Erythrocyte Sed Rate 6 mm/Hr 0-20 Urine Micro Inhouse 01/30/2015 Ua WBC - 26 Ua RBC 2-6 26 Ua Casts - 26 Ua Epi - 26 Ua Other - 26 Ua Glucose - 26 Ua Bilirubin - 26 Ua Ketones - 26 Ua Specific [place] 1.005 26 Ua Blood NH Mod 26 Ua PH 7.5 26 Ua Protein - 26 Ua Urobilinogen - 26 Ua Nitrite - 26 Ua Leukocytes - 26 Laboratory test finding 06/27/2014 Culture Throat neg Culture Throat Rapid Screen neg Clotest 09/16/2013 Clotest (SEE NOTE) 27 CBC Auto Diff 08/06/2013 White Blood Count 3.8 10^3/uL Low 4.8-10.8 Red Blood Count 4.78 10^6/uL 4.0-5.4 Hemoglobin 15.4 g/dL 14.0-18.0 Hematocrit 44 % 42-52 Mean Corpuscular Volume 92 fL 80-94 Mean Corpuscular Hemoglobin 32 pg High 27-31 Mean Corpuscular HGB Conc 35 g/dL 31-36 Red Cell Distribution Width 13 % 10.5-15 Platelet Count 232 10^3/uL 150-450 Mean Platelet Volume 9 um3 7.4-10.4 Abs Neutrophils 2.5 10^3/uL 1.5-7.7 Abs Lymphocytes 0.7 10^3/uL Low 1.0-4.8 Abs Monocytes 0.4 10^3/uL 0-0.8 Abs Eosinophils 0.2 10^3/uL 0-0.6 Abs Basophils 0 10^3/uL 0-0.2 Abs Nucleated RBC 0 10^3/uL Granulocyte % 65.6 % 38-83 Lymphocyte % 18.2 % Low 25-47 Monocyte % 10.5 % High 1-9 Eosinophil % 4.4 % 0-6 Basophil % 1.3 % 0-2 Nucleated Red Blood Cells % 0.1 Comp Metabolic Panel 08/06/2013 Sodium 134 mmol/L 133-145 Potassium 4.0 mmol/L 3.5-5.0 Chloride 98 mmol/L Low 101-111 Co2 Carbon Dioxide 33.0 mmol/L High 22-32 Anion Gap 3.0 mmol/L 2-11 Glucose 89 mg/dL 70-100 Blood Urea Nitrogen 8 mg/dL 6-24 Creatinine 0.90 mg/dL 0.50-1.40 BUN/Creatinine Ratio 8.9 8-20 Calcium 9.2 mg/dL 8.1-9.9 Total Protein 6.2 g/dL 6.2-8.1 Albumin 4.3 g/dL 3.2-5.2 Globulin 1.9 g/dL Low 2-4 Albumin/Globulin Ratio 2.3 1-3 Total Bilirubin 1.1 mg/dL 0.4-1.5 Alkaline Phosphatase 74 U/L 30-110 Alt 26 U/L 14-54 Ast 29 U/L 12-42 Egfr Non- 85.5 >60 Egfr 110.0 >60 28 Laboratory test finding 08/06/2013 Hepatitis C Antibody Nonreactive Nonreactive 29 Lipid Profile 08/06/2013 Triglycerides 66 mg/dL 40-200 (Trig/Chol/HDL) Cholesterol 194 mg/dL Less than 200 HDL Cholesterol 43 mg/dL 40-60 30 Cholesterol/HDL Ratio 4.5 Average High 1-4.44 LDL Cholesterol 137.8 High Less Than 100 31 Laboratory test finding 08/06/2013 Magnesium 2.2 mg/dL 1.7-2.6 32 TSH (Thyroid Stimulating Horm) 1.76 miu/mL 0.34-5.60 33 Laboratory test finding 03/28/2009 Culture Throat neg Lipid Profile 06/25/2007 Cholesterol/HDL Ratio 5.06 AVERAGE High 1-4.97 (Trig/Chol/HDL) Cholesterol 172 mg/dL Less Than 200 34 Triglyceride 81 mg/dL 40-200 High Density Lipoprotein 34 mg/dL Low 40-60 35 Low Density Lipoprotein 122 mg/dL High Less Than 100 36 Comp Metabolic Panel 06/25/2007 One Over Creatinine 1.11 Anion Gap 7.0 mmol/L 2-11 37 Albumin/Globulin Ratio 1.9 1-3 Albumin 4.2 GM/DL 3.6-5.4 Alkaline Phosphatase 60 U/L 39-117 Alt (SGPT) 33 U/L 17-63 Ast (Sgot) 30 U/L 12-42 BUN 9 mg/dL 6-24 Calcium 9.1 mg/dL 8.7-10.2 Chloride 100 mmol/L Low 101-111 Co2 (Carbon Dioxide) 31.0 mmol/L 22-32 Globulin 2.2 GM/DL 2-4 Glucose 84 mg/dL 70-105 Potassium 4.4 mmol/L 3.5-5.0 Sodium 138 mmol/L 135-145 Bilirubin Total 1.0 mg/dL 0.4-1.5 Total Protein 6.4 GM/DL 6.2-8.1 BUN/Creatinine Ratio 10.0 8-20 Creatinine 0.9 mg/dL 0.5-1.4 Laboratory test finding 06/25/2007 PSA Screening 0.24 NG/ML 0-4 38 Lipid Panel 06/13/2005 Cholesterol Total 172 Cholesterol/HDL Ratio 4.9 High Density Lipoprotein 35 LDL Low Density Lipoprotein 113 Triglycerides 120 Laboratory test finding 06/13/2005 PSA Total 0.2 CBC With Electronic Diff 06/13/2005 White Blood Count 4.4 RBC Red Blood Count 4.94 Hemoglobin 16.1 Hematocrit 46.1 MCV (Corpuscular Volume) 93.4 MCH (Corpuscular Hemoglobin) 32.6 MCHC (Corpuscular Hemog Conc) 34.9 RDW 13.4 Platelet Count 225 Neutrophils 76 Lymphocytes 17 Monocytes 6 Eosinophils 1 Basophils 0 Absolute Basophils 10 Absolute Eosinophils 40 Absolute Lymphocytes 740 Absolute Monocytes 270 Absolute Neutrophils 3350 CMP Panel 06/13/2005 Albumin 4.4 Alt - SGPT 25 Calcium 9.6 Carbon Dioxide 31 Chloride 102 Creatinine 1.0 Glucose Serum 99 Alkaline Phosphatase 69 Potassium 4.8 Protien Total 7.0 Sodium 138 Ast - Sgot 27 BUN - Urea Nitrogen 10 Comp Metabolic Panel 08/18/2004 Anion Gap 6.0 mmol/L 2-11 39 Albumin/Globulin Ratio 1.9 1-3 Albumin 4.3 GM/DL 3.6-5.4 Alkaline Phosphatase 88 U/L 39-117 Alt (SGPT) 20 U/L 17-63 Ast (Sgot) 26 U/L 12-42 BUN 11 mg/dL 6-24 Calcium 9.3 mg/dL 8.7-10.2 Chloride 98 mmol/L Low 101-111 Co2 (Carbon Dioxide) 31.0 mmol/L 22-32 Creatinine 1.2 mg/dL 0.5-1.4 Globulin 2.3 GM/DL 2-4 Glucose 107 mg/dL High 70-105 Potassium 4.5 mmol/L 3.5-5.0 Sodium 135 mmol/L 135-145 Bilirubin Total 0.7 mg/dL 0.4-1.5 Total Protein 6.6 GM/DL 6.2-8.1 BUN/Creatinine Ratio 9.2 8-20 CBC With Manual Diff 08/18/2004 RBC Morphology NORMAL White Blood Count 9.2 CUMM 4.8-10.8 Hematocrit 45 % 42-52 Hemoglobin 15.9 g/dL 14.0-18.0 Mean Corpuscular HGB Cone 35 g/dL 32-36 Mean Corpuscular Hemoglob 32 pg High 27-31 Mean Corpuscular Volume 92 um3 80-94 Mean Platelet Volume 8.5 um3 7.4-10.4 Platelet Count 310 CUMM 150-450 Polysegmented Neutrophil 80 % 38-83 Red Cell Count 4.93 CUMM 4.6-6.2 Redcell Distribution WDTH 13 % 10.5-15 Atypical Lymph 3 % 0-6 Eosenophil 3 % 0-6 Lymphocyte 14 % 5-47 Laboratory test finding 08/18/2004 Lipase 49 U/L 22-51 Amylase 124 U/L 30-125 1 Operating Theatre Technician: [id number] SEE RESULT BELOW Name: COURTNEY SANDERSON : [address]: Jhon Chavez DO Acct: [id number] Unit: [id number] AGE: 66 Location: [facility] Re11/18/16 SEX: M Status: REG REF SPEC: [id number] RASHMI: 11/18/16-[address]: Jhon Chavez DO REQ: [id number] RECD: 11/18/16 STATUS: COMP _ SOURCE: NASAL SPDESC: ORDERED: Flu A B Request COMMENTS: [id number] Procedure Result Reported Site Rapid Influenza A B Request Final 11/18/16- 2038 ML Specimen received for Influenza A/B Molecular testing * ML - MAIN LAB ([facility]) . END OF REPORT * ML=Testing performed at Main Lab DEPARTMENT OF PATHOLOGY, [address] [place] [address] Eddie Saul M.D. Director [facility] # [id number] 4 Because ethnic data is not always readily available, this report includes an eGFR for both -Americans and non- Americans. The National Kidney Disease Education Program (NKDEP) does not endorse the use of the MDRD equation for patients that are not between the ages of 18 and 70, are , have extremes of body size, muscle mass, or nutritional status, or are non- or non-. According to the National Kidney Foundation, irrespective of diagnosis, the stage of the disease is based on the level of kidney function: Stage Description GFR(mL/min/1.73 m(2)) 1 Kidney damage with normal or decreased GFR 90 2 Kidney damage with mild decrease in GFR 60-89 3 Moderate decrease in GFR 30-59 4 Severe decrease in GFR 15-29 5 Kidney failure <15 (or dialysis) 5 Unable to report test result due to hemolysis. 6 Because ethnic data is not always readily available, this report includes an eGFR for both -Americans and non- Americans. The National Kidney Disease Education Program (NKDEP) does not endorse the use of the MDRD equation for patients that are not between the ages of 18 and 70, are , have extremes of body size, muscle mass, or nutritional status, or are non- or non-. According to the National Kidney Foundation, irrespective of diagnosis, the stage of the disease is based on the level of kidney function: Stage Description GFR(mL/min/1.73 m(2)) 1 Kidney damage with normal or decreased GFR 90 2 Kidney damage with mild decrease in GFR 60-89 3 Moderate decrease in GFR 30-59 4 Severe decrease in GFR 15-29 5 Kidney failure <15 (or dialysis) 7 Acute inflammation: >10.00 8 [place] Severe Sepsis and Septic Shock Management Bundle Measure requires all lactic acids initially measuring >2.0 mmol/L be repeated. 9 *Ascorbic acid is present which may interfere with detection of blood. 10 *Ascorbic acid is present which may interfere with detection of blood. 11 SEE RESULT BELOW Name: COURTNEY SANDERSON : [address]: Karlos Chou MD Acct: [id number] Unit: [id number] AGE: 66 Location: ED Re08/01/16 SEX: M Status: DEP ER SPEC: [id number] RASHMI: 08/01/[address] [facility] [address]: Jennifer RAMÍREZ REQ: [id number] RECD: 08/01/16 STATUS: FERN FONG DR: Jhon Chavez DO _ SOURCE: URINE SPDESC: ORDERED: Urine Culture Procedure Result Reported Site Urine Culture Final 08/02/16- 1609 ML No Growth (<1,000 CFU/mL) * ML - MAIN LAB ([facility]) . END OF REPORT * ML=Testing performed at Main Lab DEPARTMENT OF PATHOLOGY, [address] [place] [address] Eddie Saul M.D. Director [facility] # [id number] 12 Because ethnic data is not always readily available, this report includes an eGFR for both -Americans and non- Americans. The National Kidney Disease Education Program (NKDEP) does not endorse the use of the MDRD equation for patients that are not between the ages of 18 and 70, are , have extremes of body size, muscle mass, or nutritional status, or are non- or non-. According to the National Kidney Foundation, irrespective of diagnosis, the stage of the disease is based on the level of kidney function: Stage Description GFR(mL/min/1.73 m(2)) 1 Kidney damage with normal or decreased GFR 90 2 Kidney damage with mild decrease in GFR 60-89 3 Moderate decrease in GFR 30-59 4 Severe decrease in GFR 15-29 5 Kidney failure <15 (or dialysis) 13 Normal Range 180 to 914 Indeterminate Range 145 to 180 Deficient Range <145 14 Desirable <150 Borderline high 150-199 High 200-499 Very High >500 15 Desirable <200 Borderline high 200-239 High >239 16 Low <40 Desirable: 40-60 High: >60 17 Desirable: <100 mg/dL Near Optimal: 100-129 mg/dL Borderline High: 130-159 mg/dL High: 160-189 mg/dL Very High: >189 mg/dL 18 Desirable <150 Borderline high 150-199 High 200-499 Very High >500 19 Desirable <200 Borderline high 200-239 High >239 20 Low <40 Desirable: 40-60 High: >60 21 Desirable: <100 mg/dL Near Optimal: 100-129 mg/dL Borderline High: 130-159 mg/dL High: 160-189 mg/dL Very High: >189 mg/dL 22 FASTING 23 Because ethnic data is not always readily available, this report includes an eGFR for both -Americans and non- Americans. The National Kidney Disease Education Program (NKDEP) does not endorse the use of the MDRD equation for patients that are not between the ages of 18 and 70, are , have extremes of body size, muscle mass, or nutritional status, or are non- or non-. According to the National Kidney Foundation, irrespective of diagnosis, the stage of the disease is based on the level of kidney function: Stage Description GFR(mL/min/1.73 m(2)) 1 Kidney damage with normal or decreased GFR 90 2 Kidney damage with mild decrease in GFR 60-89 3 Moderate decrease in GFR 30-59 4 Severe decrease in GFR 15-29 5 Kidney failure <15 (or dialysis) 24 SEE RESULT BELOW Name: COURTNEY SANDERSON : [address]: Ata Almaraz MD Acct: [id number] Unit: [id number] AGE: 65 Location: [facility] Re06/17/15 SEX: M Status: REG REF SPEC: [id number] RASHMI: 06/17/15-[address] [facility] [address]: Ata Almaraz MD REQ: [id number] RECD: 06/17/15 STATUS: MELANIE FONG DR: Jhon Chavez DO _ ORDERED: LEVEL IV FINAL DIAGNOSIS Colon, right, biopsy: -- Hyperplastic polyp; see comment. COMMENT: This polyp has some features but is not diagnostic of a sessile serrated adenoma. CLINICAL HISTORY Follow-up polyps. Bowel habit - every day AM with no blood. Varicocele 2005. POST-OPERATIVE DIAGNOSIS Colonoscopy to cecum - redundant angulation (90% views). 600 cc sludge, 1 polyp right colon. Flat right colon; 4 years GROSS DESCRIPTION The specimen is received in formalin labeled, Right Colon Polyp, and consists of a 1.0 x 0.6 x 0.3 cm fountain-brown irregular to polypoid soft tissue fragment, which is entirely submitted in one cassette. Signed (signature on file) Jennifer Powell MD 1141 END OF REPORT * ML=Testing performed at Main Lab DEPARTMENT OF PATHOLOGY, [address] [place] [address] Eddie Saul M.D. Director [facility] # [id number] 25 Because ethnic data is not always readily available, this report includes an eGFR for both -Americans and non- Americans. The National Kidney Disease Education Program (NKDEP) does not endorse the use of the MDRD equation for patients that are not between the ages of 18 and 70, are , have extremes of body size, muscle mass, or nutritional status, or are non- or non-. According to the National Kidney Foundation, irrespective of diagnosis, the stage of the disease is based on the level of kidney function: Stage Description GFR(mL/min/1.73 m(2)) 1 Kidney damage with normal or decreased GFR 90 2 Kidney damage with mild decrease in GFR 60-89 3 Moderate decrease in GFR 30-59 4 Severe decrease in GFR 15-29 5 Kidney failure <15 (or dialysis) 26 [id number] 27 RUN DATE: 09/17/13 [facility] LAB LIVE PAGE 1 RUN TIME: [address] [place] [address] Specimen Inquiry Name: COURTNEY SANDERSON : [address]: Ata Almaraz MD Acct: [id number] Unit: [id number] AGE: 63 Location: [facility] Re09/16/13 SEX: M Status: REG REF SPEC: [id number] RASHMI: 09/16/13-[address] [facility] [address]: Ata Almaraz MD REQ: [id number] RECD: 09/16/139 STATUS: FERN FONG DR: Jhon Torres MD _ SOURCE: JOY DIAZ [facility]: ORDERED: Clotest Procedure Result Verified Site Clotest Final 09/17/13- 39 ML Clotest Negative END OF REPORT * ML=Testing performed at Main Lab DEPARTMENT OF PATHOLOGY, [address] [place] [address] Eddie Saul M.D. Director [facility] Permit #[id number] 28 Because ethnic data is not always readily available, this report includes an eGFR for both -Americans and non- Americans. The National Kidney Disease Education Program (NKDEP) does not endorse the use of the MDRD equation for patients that are not between the ages of 18 and 70, are , have extremes of body size, muscle mass, or nutritional status, or are non- or non-. According to the National Kidney Foundation, irrespective of diagnosis, the stage of the disease is based on the level of kidney function: Stage Description GFR(mL/min/1.73 m(2)) 1 Kidney damage with normal or decreased GFR 90 2 Kidney damage with mild decrease in GFR 60-89 3 Moderate decrease in GFR 30-59 4 Severe decrease in GFR 15-29 5 Kidney failure <15 (or dialysis) 29 FASTING 30 HDL Interpretation: Undesirable: High Risk: Less than 40 mg/dL Desirable: Low Risk: Greater than 60 mg/dL 31 LDL Interpretation: Low Risk Optimal Level: LDL Less than 100 mg/dL Near or Above Optimal: LDL 100-129 mg/dL Borderline High Risk: LDL 130-159 mg/dL High Risk: LDL 160-189 mg/dL Very High Risk: LDL Greater than 189 mg/dL 32 FASTING 33 FASTING 34 Classification: Desirable . 35 Classification: Low . 36 CALCULATED LDL APPROXIMATES THE VALUE OF A DIRECT LDL MEASUREMENT. Classification: Near or above optimal . 37 Anion gap measurement may be of limited value in the presence of any alkalosis, especially in a combined acid base disorder. . 38 * SERUM LEVELS OF PSA MEASURED USING THE ROBSON Avectra ACCESS HYBRITECH IMMUNOASSAY SHOULD NOT BE INTERPRETED ABSOLUTE EVIDENCE OF THE PRESENCE OR ABSENCE OF DISEASE. THE PSA VALUE SHOULD BE USED IN CONJUNCTION WITH OTHER PERTINENT CLINICAL DIAGNOSTIC PROCEDURES. A PSA value in the range of 0.1 to 0.6 ng/ml is indeterminate if being used as an indicator of recurrent or residual disease. . 39 Anion gap measurement may be of limited value in the presence of any alkalosis, especially in a combined acid base disorder. . Procedures Date CPT Code Description Status Comment 08/24/2017 08281 Omt 3 To 4 Body Regions Involved Completed 08/17/2017 28129 Omt 3 To 4 Body Regions Involved Completed 05/30/2016 78805 Omt 7-8 Body Regions Completed 04/15/2016 06366 Electrocardiogram Complete Completed 04/15/2016 99959 X-Ray Chest Two Views Completed 09/25/2015 13873 Omt 7-8 Body Regions Completed 08/25/2015 49498 Omt 3 To 4 Body Regions Involved Completed 06/17/2015 Colonoscopy Completed 2014:polyp, fu 4yrs Lab Order: 06/17/15 - Lab 07/01/2009 0 Payment Completed 02/02/2009 48629 Electrocardiogram Complete Completed 08/16/2007 09919 Omt 3 To 4 Body Regions Involved Completed 07/11/2007 38401 Omt 3 To 4 Body Regions Involved Completed 05/18/2007 75120 Omt 3 To 4 Body Regions Involved Completed 03/01/2007 44984 Omt 3 To 4 Body Regions Involved Completed 01/17/2007 14952 Omt 3 To 4 Body Regions Involved Completed 12/18/2006 59552 Omt 3 To 4 Body Regions Involved Completed 09/06/2006 19061 Omt 3 To 4 Body Regions Involved Completed 05/17/2006 88667 Omt 3 To 4 Body Regions Involved Completed 04/07/2006 19720 Omt 3 To 4 Body Regions Involved Completed 03/02/2006 47937 Omt 3 To 4 Body Regions Involved Completed 02/08/2006 58602 Omt 3 To 4 Body Regions Involved Completed 08/22/2005 96555 Omt 3 To 4 Body Regions Involved Completed 06/08/2005 24426 Osteopathic Manipulative Completed Treatment 1 Or 2 Body Region 04/01/2005 0 Payment Completed 03/02/2005 08846 Osteopathic Manipulative Completed Treatment 1 Or 2 Body Region 01/06/2005 66171 Osteopathic Manipulative Completed Treatment 1 Or 2 Body Region 04/23/2004 57608 Omt 3 To 4 Body Regions Involved Completed 11/06/2003 81924 Electrocardiogram Complete Completed 11/06/2003 77540 Electrocardiogram Complete Completed 11/06/2003 33707 Electrocardiogram Complete Completed Encounters Type Date Location Provider CPT E/M Dx Office Visit 08/24/2017 10:30a Main Office Jhon Chavez D.O. 86147 R51 G44.209 M54.12 Office Visit 08/17/2017 12:55p Main Office Jhon Chavez D.O. 51129 G44.209 M54.12 M99.02 M99.08 M99.01 M99.00 M54.6 Office Visit 08/08/2017 9:45a Main Office Jhon Chavez D.O. 37989 G44.209 Office Visit 07/27/2017 2:30p Main Office Jhon Chavez D.O. 64459 M54.12 M54.6 Office Visit 07/05/2017 2:40p [place] [address] H69.90 J06.9 Office Visit 11/18/2016 11:45a Main Office Jhon Chavez D.O. 99838 J11.1 Office Visit 10/13/2016 10:45a Main Office Brady Moser M.D. 11646 K40.90 Office Visit 08/18/2016 12:55p Main Office Jhon Chavez D.O. 48713 K59.09 Z98.890 R10.84 Office Visit 08/15/2016 1:15p Main Office Jhon Chavez D.O. 10652 K59.09 Z98.890 Office Visit 08/12/2016 2:00p Main Office Brady Moser M.D. 74146 K59.00 R10.84 Office Visit 06/23/2016 2:15p Main Office Jhon Chavez D.O. 60583 R00.2 Office Visit 06/10/2016 4:45p Main Office Jhon Chavez D.O. 22071 S39.011A Office Visit 05/30/2016 10:45a Main Office Jhon Chavez D.O. 75088 R07.89 R00.2 M99.08 M99.01 M99.00 M99.02 M99.05 M99.03 M99.04 F45.8 Office Visit 04/15/2016 11:15a Main Office Brady Moser M.D. 18377 R00.2 R07.89 M79.669 Z23 Office Visit 09/25/2015 11:00a Main Office Jhon Chavez D.O. 67132 M99.08 M99.01 M99.00 M99.02 M99.03 M99.05 M99.04 M54.6 M54.5 M54.2 Office Visit 08/25/2015 10:30a Main Office Jhon Chavez D.O. 17126 Z00.00 M54.6 M99.00 M99.01 M99.02 M99.08 Z23 Z41.8 Office Visit 07/17/2015 11:30a Main Office Jhon Chavez D.O. 97145 K64.1 Office Visit 07/10/2015 5:00p Main Office Jhon Chavez D.O. 25943 R10.30 Office Visit 03/27/2015 2:00p Main Office Brady Moser M.D. 94313 719.45 327.23 Office Visit 02/21/2015 10:30a Main Office Jhon Chavez D.O. 96518 789.01 Office Visit 02/10/2015 3:45p Main Office Brady Moser M.D. 49957 789.07 Office Visit 01/30/2015 4:30p Main Office Brady Moser M.D. 71578 789.01 789.07 Office Visit 07/09/2014 2:30p Main Office Jhon Chavez D.OClinton 17527 462 472.0 Office Visit 06/27/2014 4:00p Main Office Jhon Chavez D.OClinton 56674 462 Office Visit 03/31/2014 4:00p Main Office Jhon Chavez D.O. 66867 327.23 784.0 530.81 461.0 Office Visit 12/19/2013 3:00p Main Office Jhon Chavez D.O. 64697 550.90 Office Visit 10/28/2013 3:00p Main Office Jhon Chavez D.OClitnon 94707 455.4 Office Visit 09/26/2013 4:15p Main Office Jhon Chavez D.O. 02287 327.23 784.0 530.81 300.00 Office Visit 08/15/2013 10:30a Main Office Jhon Chavez D.O. 49807 V70.0 327.23 784.0 V76.44 530.81 v06.1 v07.2 Office Visit 07/26/2013 2:45p Main Office Jhon Chavez D.O. 96267 V72.62 729.81 782.3 Office Visit 08/11/2010 2:30p Main Office Daron Juárez M.D. 15754 784.0 Office Visit 06/23/2009 3:45p Main Office Brady Moser M.D. 68413 053.9 Office Visit 03/28/2009 10:45a Main Office Daron Juárez M.D. 55569 784.1 Office Visit 02/02/2009 4:30p Main Office Daron Juárez M.D. 27974 786.09 786.50 300.00 Office Visit 08/16/2007 4:40p Main Office klepack 70060 724.2 739.3 739.4 739.5 723.1 739.1 739.8 739.2 Office Visit 07/11/2007 4:40p Main Office klepack 16337 724.2 739.3 739.4 739.5 723.1 739.1 739.8 739.2 Office Visit 07/05/2007 10:00a Main Office klepack 81692 V70.0 272.8 Office Visit 05/18/2007 10:00a Main Office klepack 82189 724.2 739.3 739.4 739.5 723.1 739.1 739.8 739.2 V65.41 Office Visit 05/03/2007 1:20p Main Office klepack 84383 455.6 Office Visit 03/01/2007 4:40p Main Office klepack 02717 724.2 739.3 739.4 739.5 723.1 739.1 Office Visit 01/17/2007 1:00p Main Office klepack 50525 724.2 739.3 739.4 739.5 723.1 739.1 Office Visit 12/18/2006 10:30a Main Office klepack 98504 724.2 739.3 739.4 739.5 723.1 739.1 Office Visit 09/06/2006 1:30p Main Office klepack 09818 724.2 739.3 739.4 739.5 723.1 739.1 Office Visit 06/23/2006 9:45a Main Office klepack 63187 272.8 V70.0 238.2 V04.81 Office Visit 05/17/2006 4:30p Main Office klepack 73559 724.2 739.3 739.4 739.5 784.0 Office Visit 05/10/2006 2:30p Main Office klepack 00561 719.45 Office Visit 04/07/2006 9:45a Main Office klepack 43110 724.2 739.3 739.4 724.5 739.2 739.8 739.5 Office Visit 03/02/2006 12:55p Main Office klepack 60170 724.2 739.3 739.4 724.5 739.2 739.8 Office Visit 02/08/2006 4:30p Main Office klepack 73617 724.2 739.5 739.4 739.3 724.5 739.2 739.8 736.81 734 Office Visit 02/01/2006 2:30p Main Office klepack 92198 784.0 Office Visit 12/07/2005 1:30p Main Office klepack 94178 456.4 Office Visit 06/15/2005 2:00p Main Office klepack 60729 V70.0 272.8 Office Visit 03/02/2005 5:00p Main Office klepack 98422 724.2 739.5 739.4 Office Visit 01/06/2005 5:00p Main Office klepack 39799 724.2 739.5 739.4 Office Visit 12/15/2004 3:45p Main Office klepack 49283 456.4 782.0 Office Visit 11/24/2004 4:30p Main Office klepack 96053 782.0 608.89 Office Visit 09/11/2004 10:15a Main Office Daron Juárez M.D. 23733 465.9 780.6 Office Visit 08/18/2004 1:45p Main Office klepack 87232 789.06 Office Visit 08/11/2004 10:30a Main Office klepack 68265 789.06 Office Visit 05/14/2004 8:30a Main Office aysha 74740 724.2 736.81 719.46 Office Visit 04/23/2004 8:55a Main Office aysha 28403 724.2 739.5 739.4 739.3 736.81 Office Visit 01/01/2004 2:30p Main Office aysha 15913 728.85 Office Visit 11/06/2003 2:45p Main Office Brady Moser M.D. 78569 600.00 780.4 785.1 V76.51 V70.0 530.81 Plan of Care Future Appointment(s):09/28/2017 4:45 pm - Jhon Chavez D.O. at Main Syslqd7209/07/2017 2:00 pm - Fannie West at Main Zonzvj3108/24/2017 - Jhon Chavez D.O.R51 DxbrstbvD37.209 Tension-type headache, unspecified, not intractableReferral:[facility], XoudnatbmS50.12 Radiculopathy, cervical region
--- OUTSIDE RECORDS SUMMARY | 2017-09-05 18:18 | XMS REPORT ---
:1950 External Reference #:[id number] Author Organization [facility] Address [address] [place] [address] Phone [phone] Care Team Providers Name Role Phone HCP given Primary Care Physician Unavailable Payers Type Date Identification Numbers Payment Provider Subscriber Medicare Primary Effective: Policy Number: [facility] Courtneyisa Sanderson 2016 [id number] Services PayID: [id number] [address] [place] [address] Medigap Part B Policy Number: [id number] [facility] Courtney Sanderson Group Number: [id number] [address] Group Name: [facility] [place] [address] PayID: [id number] Problems Date Description Provider Status Onset: 11/06/2003 [...] Onset: 09/25/2015 Myalgia Jhon Chavez D.O. Active Family History Date Family Member(s) Problem(s) Comments Father Iwona born 1922 ghg : (age 54 Mother due to ID Years) Mother Anxiety Mother Jodie born 1926 First Brother Shruthi born 1947 First Sister due to Ovarian () - AGE 50 Cancer First Sister Nelsy born 1952. 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 [employer] and spends time w family ETOH Use Drinks Alcoholic Beverages Rarely Smoking Patient has never smoked Enjoy Exercising Enjoys exercising walks 5x wkly Exercise Type/Frequency Exercises sporadically aerobics golf Sun Exposure moderate amount of sun exposure Sun Exposure Uses sunscreen Seat Belt/Car Seat always uses seat belt Age [facility] [place] 21 Years Old Additional Info Sexual preference is women Allergies, Adverse Reactions, Alerts Date Description Reaction Status Severity Comments 11/06/2003 NKDA active Medications Medication Date Status Form Strength Qnty SIG Indications Ordering Provider Butalbital-Acet 08/08 Active Tablets 50-325mg 14tab take 1 Sopchakye aminophen s tablet by Jhon, mouth every D.O. 4 hours mdd 3 as needed rarely for headache Miralax 08/02 Active OTC as directed, 2 full doses twice daily Aspirin 08/14 Active 81mg one po Unknown Children's daily Multi-Vitamin 08/14 Active OTC one po daily Heated Cpap 06/13 Active use nightly klepack With Humidifier C Pap Machine 04/27 Active use as klepack directed #1 Flax Seed Oil Active Capsules 1000mg once a day Unknown Nasonex 07/05 Hx Suspension 50mcg/Act 17gm 2 sprays H69.90 Marquita, each Jose Neri nostril M.D. 07/26 daily as needed Tamiflu [...] Hx Suppository 30mg 120un insert 1 K64.1 Kathy Acetate its suppository Jhon, - rectally D.O. 04/14 morning and /2015 night for 6 to 8 weeks Fluticasone 03/31 Hx Suspension 50mcg/Act 1unit 2 sprays 461.0 [facility] each Jhon, - nostril D.O. 05/01 every day for nasal congestion. nagi allergies. rinse mouth post 472.0 Proctosol HC 10/28/2013 - Hx Cream 2.5% 28.350gm 1 cap apply 455.4 Sopchak, 11/28/2013 to affected Jhon, area four D.O. times a day Lidocaine HCL 10/28/2013 - Hx Gel 2% 30ml apply to 455.4 Kathy Jelly 11/28/2014 affected area Jhon, four times [...] 08/15/2013 twice a day; Daron, start this M.DClinton only if your headache returns; Make another appointment if not better after 2-3 days Aristocort 06/23/2009 - Hx Cream 0.1% 30gm use prn itch 053.9 Brady Avendano 08/15/2013 and tid Dee Moser Valtrex 06/23/2009 - Hx Tablets 500mg 14tabs 1 tablet po 053.9 Brady AClinton 07/03/2009 bid as brittany Moser M.D. Physical 08/29/2007 - Hx for back aysha Therparafaela 02/01/2009 pain. Cortifoam 05/03/2007 - Hx Foam 90mg Apply To 455.6 [facility] 02/01/2009 Affected Area bid #QS For 2 Weeks Aciphex 08/11/2004 - Hx Tablets 40mg 30tabs 1 po qd 789.06 [facility] 08/18/2004 Flexeril 04/23/2004 - Hx Tablets 10mg 30tabs 1 PO Q hs 724.2 [facility] 09/11/2004 DO Not Operate Heavy Equipment While On Meds Immunizations CPT Code Status Date Vaccine Lot # [id number] Given 05/10/2017 Influenza Vaccine Split Virus Preservative Free Im [id number] Use 29231 Given 04/15/2016 Prevnar 13 [id number] 92317 Given 04/15/2016 Influenza Vaccine Split Virus Preservative Free Im [id number] Use 78124 Given 08/25/2015 Zostavax [id number] 00534 Given 05/15/2015 Influenza Virus Vaccine, Quadrivalent, Split, [id number] Preservative Free 66431 Given 06/14/2014 Flu, Split Virus 3Yrs [id number] 17444 Given 08/15/2013 Adacel or Boostrix, TDaP [id number] 29018 Given 05/22/2013 Flu, Split Virus 3Yrs [id number] 56866 Given 06/18/2007 Flu, Split Virus 3Yrs 89264 Given 06/23/2006 Flu, Split Virus 3Yrs [id number] 95658 Given 06/08/2005 Flu, Split Virus 3Yrs 52618 Given 05/27/2003 Flu, Split Virus 3Yrs 04955 Given 11/05/2002 Td Immunization 86422 Given 08/07/1989 Td Immunization Vital Signs Date Vital Result Comment 08/08/2017 BP Systolic 126 mmHg BP Diastolic [...] Color Yellow Urine Appearance Cloudy Urine Specific Luxora 1.016 1.010-1.030 Urine pH 7.0 5-9 Urine Urobilinogen Negative Negative Urine Ketones 1+ Negative Urine Protein Negative Negative Urine Leukocytes Negative Negative Urine Blood Negative Negative * * Negative 9 Urine Nitrite Negative Negative Urine Bilirubin Negative Negative Urine Glucose Negative Negative Urinalysis Profile 08/06/2016 Urine Color Yellow Urine Appearance Clear Urine Specific Luxora 1.011 1.010-1.030 Urine pH 8.0 5-9 Urine Urobilinogen Negative Negative Urine Ketones Trace Negative Urine Protein Negative Negative Urine Leukocytes Negative Negative Urine Blood Negative Negative Urine Nitrite Negative Negative Urine Bilirubin Negative Negative Urine Glucose Negative Negative Laboratory test finding 08/01/2016 Urine Culture And SEE RESULT BELOW 10 Sensitivities Urinalysis Profile 08/01/2016 Urine Color Bettye Urine Appearance Cloudy Urine Specific Luxora 1.016 1.010-1.030 Urine pH 7.0 5-9 Urine Urobilinogen Negative Negative Urine Ketones Negative Negative Urine Protein Negative Negative Urine Leukocytes Negative Negative Urine Blood 1+ Negative * * Negative 11 Urine Nitrite Negative Negative Urine Bilirubin Negative Negative Urine Glucose Negative Negative Urine White Blood Cell Absent Absent Urine Red Blood Cell 3+(>10/hpf) Absent Urine Bacteria Absent Absent Comp Metabolic Panel 06/24/2016 Sodium 135 mmol/L [...] 06/17/2015 Surgical Pathology SEE RESULT BELOW 24 Basic Metabolic Panel 02/04/2015 Sodium 137 mmol/L 133-145 Potassium 4.5 mmol/L 3.5-5.0 Chloride 100 mmol/L Low 101-111 Co2 Carbon Dioxide 32 mmol/L 22-32 Anion Gap 5 mmol/L 2-11 Glucose 93 mg/dL 70-100 Blood Urea Nitrogen 12 mg/dL 6-24 Creatinine 0.93 mg/dL 0.67-1.17 BUN/Creatinine Ratio 12.9 8-20 Calcium 9.2 mg/dL 8.6-10.3 Egfr Non- 82.1 >60 Egfr 105.5 >60 25 Liver Function Panel 02/04/2015 Total Protein 6.7 [...] Blood Cells % 0.1 Laboratory test finding 02/04/2015 Erythrocyte Sed Rate 6 mm/Hr 0-20 Urine Micro Inhouse 01/30/2015 Ua WBC - 26 Ua RBC 2-6 26 Ua Casts - 26 Ua Epi - 26 Ua Other - 26 Ua Glucose - 26 Ua Bilirubin - 26 Ua Ketones - 26 Ua Specific Luxora 1.005 26 Ua Blood NH Mod 26 [...] 06/25/2007 PSA Screening 0.24 NG/ML 0-4 38 Laboratory test finding 06/13/2005 PSA Total 0.2 [...] Sgot 27 BUN - Urea Nitrogen 10 Lipid Panel 06/13/2005 Cholesterol Total 172 Cholesterol/HDL Ratio 4.9 High Density Lipoprotein 35 LDL Low Density Lipoprotein 113 Triglycerides 120 Comp Metabolic Panel 08/18/2004 Anion Gap 6.0 [...] U/L 22-51 Amylase 124 U/L 30-125 1 Ecological Economist: [id number] 3 SEE RESULT BELOW Name: COURTNEY SANDERSON : [address]: Jhon Chavez DO Acct: [id number] Unit: [id number] AGE: 66 Location: [facility] Re11/18/16 SEX: M Status: REG REF SPEC: [id number] RASHMI: 11/18/16-[address]: Jhon Chavez DO REQ: [id number] RECD: 11/18/16 STATUS: COMP _ SOURCE: NASAL SPDESC: ORDERED: Flu A B Request COMMENTS: [id number] Procedure Result Reported Site Rapid Influenza A B Request Final 11/18/16- 2038 ML Specimen received for Influenza A/B Molecular testing * ML - MAIN LAB ([facility]) . END OF REPORT * ML=Testing performed at Main Lab DEPARTMENT OF PATHOLOGY, [address], [place], [place] [address] Eddie Saul M.D. Director [facility] # [id number] 4 Because ethnic data is not always [...] (or dialysis) 7 Acute inflammation: >10.00 8 [facility] Severe Sepsis and Septic Shock Management Bundle Measure requires all lactic acids initially measuring >2.0 mmol/L be repeated. 9 *Ascorbic acid is present which may interfere with detection of blood. 10 SEE RESULT BELOW Name: EMICOURTNEY Silva : [address]: Karlos Chou MD Acct: [id number] Unit: [id number] AGE: 66 Location: ED Re08/01/16 SEX: M Status: DEP ER SPEC: [id number] RASHMI: 08/01/[address]: Jennifer RAMÍREZ REQ: [id number] RECD: 08/01/16 STATUS: FERN FONG DR: Jhon Chavez DO _ SOURCE: URINE [facility]: ORDERED: Urine Culture Procedure Result Reported Site Urine Culture Final 08/02/16- 1609 ML No Growth (<1,000 CFU/mL) * ML - MAIN LAB ([facility]) . END OF REPORT * ML=Testing performed at Main Lab DEPARTMENT OF PATHOLOGY, [address] [place] [address] Eddie Saul M.D. Director [facility] # [id number] 11 *Ascorbic acid is present which may interfere with detection of blood. 12 Because ethnic data is not always [...] [address]: Ata Almaraz MD Acct: [id number] Unit: [id number] AGE: 65 Location: [facility] Re06/17/15 SEX: M Status: REG REF SPEC: [id number] RASHMI: 06/17/15-[address] [facility] [address]: Ata Almaraz MD REQ: [id number] RECD: 06/17/15 STATUS: MELANIE FONG DR: Jhon [...] performed at Main Lab DEPARTMENT OF PATHOLOGY, [address] [place] [address] Eddie Saul M.D. Director [facility] # [id number] 25 Because ethnic data is not always [...] 5 Kidney failure <15 (or dialysis) 26 [id number] 27 RUN DATE: 09/17/13 [facility] LAB LIVE PAGE 1 RUN TIME: [address] [place] [address] Specimen Inquiry Name: COURTNEY SANDERSON : [address]: Ata Almaraz MD Acct: [id number] Unit: [id number] AGE: 63 Location: [facility] Re09/16/13 SEX: M Status: REG REF SPEC: [id number] RASHMI: 09/16/13-[address] [facility] [address]: Ata Almaraz MD REQ: [id number] RECD: 09/16/137428 STATUS: COMP [facility] : Jhon Torres MD _ SOURCE: GAS ANTRUM SPDESC: ORDERED: Clotest Procedure Result Verified Site Clotest Final 09/17/13- 0639 ML Clotest Negative END OF REPORT * ML=Testing performed at Main Lab DEPARTMENT OF PATHOLOGY, [address] [place] [address] Eddie Saul M.D. Director [facility] Permit #[id number] 28 Because ethnic data is not always [...] SERUM LEVELS OF PSA MEASURED USING THE [employer] ACCESS HYBRITECH IMMUNOASSAY SHOULD NOT BE INTERPRETED [...] Procedures Date CPT Code Description Status Comment 05/30/2016 25516 Omt 7-8 Body Regions Completed 04/15/2016 18348 Electrocardiogram Complete Completed 04/15/2016 34962 X-Ray Chest Two Views Completed 09/25/2015 25646 Omt 7-8 Body Regions Completed 08/25/2015 84540 Omt 3 To 4 Body Regions Involved Completed 06/17/2015 Colonoscopy Completed 2014:polyp, fu 4yrs Lab Order: 06/17/15 - Lab 07/01/2009 0 Payment Completed 02/02/2009 32776 Electrocardiogram Complete Completed 08/16/2007 58163 Omt 3 To 4 Body Regions Involved Completed 07/11/2007 49565 Omt 3 To 4 Body Regions Involved Completed 05/18/2007 88819 Omt 3 To 4 Body Regions Involved Completed 03/01/2007 24723 Omt 3 To 4 Body Regions Involved Completed 01/17/2007 34956 Omt 3 To 4 Body Regions Involved Completed 12/18/2006 56010 Omt 3 To 4 Body Regions Involved Completed 09/06/2006 69678 Omt 3 To 4 Body Regions Involved Completed 05/17/2006 74162 Omt 3 To 4 Body Regions Involved Completed 04/07/2006 62222 Omt 3 To 4 Body Regions Involved Completed 03/02/2006 64090 Omt 3 To 4 Body Regions Involved Completed 02/08/2006 79619 Omt 3 To 4 Body Regions Involved Completed 08/22/2005 62628 Omt 3 To 4 Body Regions Involved Completed 06/08/2005 81849 Osteopathic Manipulative Completed Treatment 1 Or 2 Body Region 04/01/2005 0 Payment Completed 03/02/2005 54653 Osteopathic Manipulative Completed Treatment 1 Or 2 Body Region 01/06/2005 72237 Osteopathic Manipulative Completed Treatment 1 Or 2 Body Region 04/23/2004 02939 Omt 3 To 4 Body Regions Involved Completed 11/06/2003 91255 Electrocardiogram Complete Completed 11/06/2003 87563 Electrocardiogram Complete Completed 11/06/2003 92024 Electrocardiogram Complete Completed Encounters Type Date Location Provider CPT E/M Dx Office Visit 08/08/2017 9:45a Main Office Jhon Chavez D.O. 83219 G44.209 Office Visit 07/27/2017 2:30p Main Office Jhon Chavez D.O. 17907 M54.12 M54.6 Office Visit 07/05/2017 2:40p [place] [address] H69.90 J06.9 Office Visit 11/18/2016 11:45a Main Office Jhon Chavez D.O. 08894 J11.1 Office Visit 10/13/2016 10:45a Main Office Brady Moser M.D. 60080 K40.90 Office Visit 08/18/2016 12:55p Main Office Jhon Chavez D.O. 57675 K59.09 Z98.890 R10.84 Office Visit 08/15/2016 1:15p Main Office Jhon Chavez D.O. 87890 K59.09 Z98.890 Office Visit 08/12/2016 2:00p Main Office Brady Moser M.D. 15069 K59.00 R10.84 Office Visit 06/23/2016 2:15p Main Office Jhon Chavez D.O. 77793 R00.2 Office Visit 06/10/2016 4:45p Main Office Jhon Chavez D.O. 20690 S39.011A Office Visit 05/30/2016 10:45a Main Office Jhon Chavez D.O. 46361 R07.89 R00.2 M99.08 M99.01 M99.00 M99.02 M99.05 M99.03 M99.04 F45.8 Office Visit 04/15/2016 11:15a Main Office Brady Moser M.D. 83287 R00.2 R07.89 M79.669 Z23 Office Visit 09/25/2015 11:00a Main Office Jhon Chavez D.O. 87031 M99.08 M99.01 M99.00 M99.02 M99.03 M99.05 M99.04 M54.6 M54.5 M54.2 Office Visit 08/25/2015 10:30a Main Office Jhon Chavez D.O. 10591 Z00.00 M54.6 M99.00 M99.01 M99.02 M99.08 Z23 Z41.8 Office Visit 07/17/2015 11:30a Main Office Jhon Chavez D.O. 48695 K64.1 Office Visit 07/10/2015 5:00p Main Office Jhon Chavez D.O. 83533 R10.30 Office Visit 03/27/2015 2:00p Main Office Brady Moser M.D. 04168 719.45 327.23 Office Visit 02/21/2015 10:30a Main Office Jhon Chavez D.O. 10697 789.01 Office Visit 02/10/2015 3:45p Main Office Brady Moser M.D. 26089 789.07 Office Visit 01/30/2015 4:30p Main Office Brady Moser M.D. 51252 789.01 789.07 Office Visit 07/09/2014 2:30p Main Office Jhon Chavez D.O. 80046 462 472.0 Office Visit 06/27/2014 4:00p Main Office Jhon Chavez D.O. 12437 462 Office Visit 03/31/2014 4:00p Main Office Jhon Chavez D.O. 14593 327.23 784.0 530.81 461.0 Office Visit 12/19/2013 3:00p Main Office Jhon Chavez D.O. 98422 550.90 Office Visit 10/28/2013 3:00p Main Office Jhon Chavez D.O. 81529 455.4 Office Visit 09/26/2013 4:15p Main Office Jhon Chavez D.O. 90302 327.23 784.0 530.81 300.00 Office Visit 08/15/2013 10:30a Main Office Jhon Chavez D.O. 82292 V70.0 327.23 784.0 V76.44 530.81 v06.1 v07.2 Office Visit 07/26/2013 2:45p Main Office Jhon Chavez D.O. 44066 V72.62 729.81 782.3 Office Visit 08/11/2010 2:30p Main Office Daron Juárez M.D. 24703 784.0 Office Visit 06/23/2009 3:45p Main Office Brady Moser M.D. 69418 053.9 Office Visit 03/28/2009 10:45a Main Office Daron Juárez M.D. 65802 784.1 Office Visit 02/02/2009 4:30p Main Office Daron Juárez M.D. 70687 786.09 786.50 300.00 Office Visit 08/16/2007 4:40p Main Office aysha 41789 724.2 739.3 739.4 739.5 723.1 739.1 739.8 739.2 Office Visit 07/11/2007 4:40p Main Office klepack 67396 724.2 739.3 739.4 739.5 723.1 739.1 739.8 739.2 Office Visit 07/05/2007 10:00a Main Office klepack 20569 V70.0 272.8 Office Visit 05/18/2007 10:00a Main Office klepack 22300 724.2 739.3 739.4 739.5 723.1 739.1 739.8 739.2 V65.41 Office Visit 05/03/2007 1:20p Main Office klepack 72726 455.6 Office Visit 03/01/2007 4:40p Main Office klepack 37847 724.2 739.3 739.4 739.5 723.1 739.1 Office Visit 01/17/2007 1:00p Main Office klepack 10549 724.2 739.3 739.4 739.5 723.1 739.1 Office Visit 12/18/2006 10:30a Main Office klepack 78524 724.2 739.3 739.4 739.5 723.1 739.1 Office Visit 09/06/2006 1:30p Main Office klepack 20782 724.2 739.3 739.4 739.5 723.1 739.1 Office Visit 06/23/2006 9:45a Main Office klepack 37494 272.8 V70.0 238.2 V04.81 Office Visit 05/17/2006 4:30p Main Office klepack 96617 724.2 739.3 739.4 739.5 784.0 Office Visit 05/10/2006 2:30p Main Office klepack 61125 719.45 Office Visit 04/07/2006 9:45a Main Office klepack 81299 724.2 739.3 739.4 724.5 739.2 739.8 739.5 Office Visit 03/02/2006 12:55p Main Office klepack 81762 724.2 739.3 739.4 724.5 739.2 739.8 Office Visit 02/08/2006 4:30p Main Office klepack 86282 724.2 739.5 739.4 739.3 724.5 739.2 739.8 736.81 734 Office Visit 02/01/2006 2:30p Main Office klepack 44388 784.0 Office Visit 12/07/2005 1:30p Main Office klepack 29142 456.4 Office Visit 06/15/2005 2:00p Main Office klepack 03043 V70.0 272.8 Office Visit 03/02/2005 5:00p Main Office klepack 56190 724.2 739.5 739.4 Office Visit 01/06/2005 5:00p Main Office klepack 46019 724.2 739.5 739.4 Office Visit 12/15/2004 3:45p Main Office klepack 33695 456.4 782.0 Office Visit 11/24/2004 4:30p Main Office klepack 67979 782.0 608.89 Office Visit 09/11/2004 10:15a Main Office Daron Juárez M.D. 48680 465.9 780.6 Office Visit 08/18/2004 1:45p Main Office klepack 51947 789.06 Office Visit 08/11/2004 10:30a Main Office klepack 34733 789.06 Office Visit 05/14/2004 8:30a Main Office klepack 19610 724.2 736.81 719.46 Office Visit 04/23/2004 8:55a Main Office klepack 38155 724.2 739.5 739.4 739.3 736.81 Office Visit 01/01/2004 2:30p Main Office klepack 79691 728.85 Office Visit 11/06/2003 2:45p Main Office Brady Moser M.D. 58640 600.00 780.4 785.1 V76.51 V70.0 530.81 Plan of Care Future Appointment(s):09/07/2017 2:00 pm - Fannie West at Main Ojacdh75 12:55 pm - Jhon Chavez D.O. at Main Avbovx2808/08/2017 - Jhon Chavez D.O.G44.209 Tension-type headache, unspecified, not intractableFollow up: as scheduled
[2017-09-05 18:34] VITALS: BP 122/70
--- NOTE | 2017-09-05 18:41 | UC ---
FLU HPI - HPI Summary HPI Summary: Patient presents with 2 day onset fever, generalized fatigue, malaise and achiness. He states he has a cough with not significant sputum production. He denies any abdominal pain, nausea, vomiting, or diarrhea. - History of Current Complaint Hx Obtained From: Patient Onset/Duration: Sudden Onset, Lasting Days Severity Currently: Mild Severity Initially: Moderate Pain Intensity: 0 Associated Signs & Symptoms: Positive: Fever, Myalgia, Cough - Risk Factors Influenza Risk Factors: Negative <Martha Blanco - Last Filed: 09/05/17 19:11> <Neetu Hassan - Last Filed: 09/05/17 19:36> - History of Current Complaint Chief Complaint: UCGeneralIllness Stated Complaint: FEVER, ACHES, AND COUGH Time Seen by Provider: 09/05/17 18:28 - Allergy/Home Medications Allergies/Adverse Reactions: Allergies Allergy/AdvReac Type Severity Reaction Status Date / Time NKDA Allergy See Comment Uncoded 09/05/17 18:31 Home Medications: Home Medications Multiple Vitamins W/ Minerals [Multivitamin Adults] 1 tab PO DAILY 09/05/17 [ History Confirmed 09/05/17] PMH/Surg Hx/FS Hx/Imm Hx Previously Healthy: Yes Other History Of: Negative For: HIV, Hepatitis B, Hepatitis C, Anticoagulant Therapy - Surgical History Surgical History: Yes Surgery Procedure, Year, and Place: TONSILS A CHILD,. 2005 VARICOCELE,. 2011 HEART CATH NO STENTING. LAPROSCOPIC APPENDECTOMY 08/02/16. HEMMORHOIDECTOMY 2014 - Family History Known Family History: Positive: Cardiac Disease - Mother at age 54 from a massive heart attack., Hypertension - Social History Occupation: Retired Lives: Alone Alcohol Use: None Substance Use Type: None Smoking Status (MU): Never Smoked Tobacco Type: Cigarettes Have You Smoked in the Last Year: No <Martha Blanco - Last Filed: 09/05/17 19:11> Review of Systems Constitutional: Fever, Chills, Fatigue Skin: Negative Eyes: Negative ENT: Negative Respiratory: Cough Cardiovascular: Negative Gastrointestinal: Negative Genitourinary: Negative Motor: Negative Neurovascular: Negative Musculoskeletal: Negative Neurological: Negative Psychological: Negative Is Patient Immunocompromised?: No All Other Systems Reviewed And Are Negative: Yes <Martha Blanco - Last Filed: 09/05/17 19:11> Physical Exam Triage Information Reviewed: Yes Appearance: Ill-Appearing Vital Signs: Initial Vital Signs Temp 101.3 F 09/05/17 18:27 Pulse 100 09/05/17 18:27 Resp 18 09/05/17 18:27 BP 122/70 09/05/17 18:27 Pulse Ox 99 09/05/17 18:27 Vital Signs Reviewed: Yes Eye Exam: Normal ENT: Positive: Pharyngeal erythema Neck exam: Normal Neck: Positive: 1 Respiratory Exam: Normal Cardiovascular Exam: Normal Abdominal Exam: Normal Musculoskeletal Exam: Normal Neurological Exam: Normal Psychological Exam: Normal Skin Exam: Normal <Martha Blanco - Last Filed: 09/05/17 19:11> Vital Signs: Initial Vital Signs Temp 101.3 F 09/05/17 18:27 Pulse 100 09/05/17 18:27 Resp 18 09/05/17 18:27 BP 122/70 09/05/17 18:27 Pulse Ox 99 09/05/17 18:27 <Neetu Hassan - Last Filed: 09/05/17 19:36> Flu Course/Dx - Course Course Of Treatment: Patient presents with 2 days onset fatigue, malaise, fever and cough. Influenza was positive and the patient was treated with tamiflu. I told his to take tyelenol 500 mg by mouth every six hours sot the next two days , and if his symtpom worsen he will follow up with his PCP. - Differential Dx/Diagnosis Provider Diagnoses: influenza <Martha Blanco - Last Filed: 09/05/17 19:11> Discharge <Martha Blanco - Last Filed: 09/05/17 19:11> <Neetu Hassan - Last Filed: 09/05/17 19:36> - Discharge Plan Condition: Stable Disposition: HOME Prescriptions: Oseltamivir SUSP 75 MG dose* [Tamiflu SUSP 75 MG dose*] 75 mg PO BID #10 oral.syrin Patient Education Materials: Influenza (DC) Referrals: Jhon Chavez DO [Primary Care Provider] - Attestation Statement User Type: Provider - I was available for consult. This patient was seen by the CLARISSE. The patient was not presented to, seen by, or examined by me. -Ljj <Neetu Hassan - Last Filed: 09/05/17 19:36>
== END 2017-09-05 19:15 | disposition home or self-care (01) ==
LOC: UCEAST 18:08
DX: J11.1 Influenza due to unidentified influenza virus with other respiratory manifestations (principal)
CPT/HCPCS: 87502; 99212; G0463